=== PATIENT | female | born 1960 | race Caucasian/White ===

== ENCOUNTER 2017-03-19 17:20 | Emergency (ER) | payer OTHER ==
[2017-03-19 17:47] VITALS: BP 161/82; PULSE 78; TEMP 98.2; BMI 25.0
--- NOTE | 2017-03-19 17:48 | PDOC ---
History of Present Illness - General History Source: Patient Exam Limitations: No Limitations - History of Present Illness Initial Comments: The patient is a 57 yo F with a PMHx of HTN and depression who presents with 10 days of neck and back pain. Patient denies trauma to the area. Patient called her physician and was prescribed Naproxen with no relief. Patient reports a prior Hx of 2 dislocated discs. PCP: Dr. Jackson Patients current medications: Losartan HCTZ, on pyrazole, metoprolol, mirtazapine, buspirone <Danya Garzon - Last Filed: 03/19/17 18:15> <Anders Torres - Last Filed: 03/19/17 18:25> - General Chief Complaint: Pain Stated Complaint: RIGHT SIDED NECK AND UPPER BACK PAIN 10 DAYS Time Seen by Provider: 03/19/17 17:47 Past History <Danya Garzon - Last Filed: 03/19/17 18:15> - Past Medical History GI Disorders: Yes (REFLUX) HTN: Yes Hypercholesterolemia: Yes Psychiatric Problems: Yes (DEPRESSION ANXIETY) Other medical history: ARTHRITIS - Surgical History Orthopedic Surgery: Yes (left knee) - Psycho/Social/Smoking Cessation Hx Anxiety: No Suicidal Ideation: No Smoking Status: No Smoking History: Never smoked Have you smoked in the past 12 months: No Number of Cigarettes Smoked Daily: 0 Information on smoking cessation initiated: No Hx Alcohol Use: No Drug/Substance Use Hx: No Substance Use Type: None Hx Substance Use Treatment: No <Anders Torres - Last Filed: 03/19/17 18:25> - Past Medical History Allergies/Adverse Reactions: Allergies Allergy/AdvReac Type Severity Reaction Status Date / Time No Known Allergies Allergy Verified 03/19/17 17:22 Home Medications: Ambulatory Orders Metoprolol Succinate [Toprol XL -] 100 mg PO DAILY 04/18/14 Losartan 50Mg/Hctz 12.5MG [Hyzaar -] 1 tab PO DAILY 08/28/16 Buspirone HCl 15 mg PO BID 03/19/17 Cyclobenzaprine HCl [Flexeril 10 mg] 10 mg PO TID PRN #30 tablet 03/19/17 Methylprednisolone [Medrol Dose Yobani] 4 mg PO ASDIR #21 tablet 03/19/17 Mirtazapine 30 mg PO HS 03/19/17 Naproxen [Naprosyn -] 500 mg PO BID 03/19/17 Omeprazole 40 mg PO DAILY 03/19/17 Review of Systems - Review of Systems Able to Perform ROS?: Yes Comments:: GENERAL/CONSTITUTIONAL: No fever or chills. No weakness. HEAD, EYES, EARS, NOSE AND THROAT: No change in vision. No ear pain or discharge. No sore throat. CARDIOVASCULAR: No chest pain or shortness of breath. RESPIRATORY: No cough, wheezing, or hemoptysis. GASTROINTESTINAL: No nausea, vomiting, diarrhea or constipation. GENITOURINARY: No dysuria, frequency, or change in urination. MUSCULOSKELETAL: + neck and back pain No joint or muscle swelling or pain. SKIN: No rash NEUROLOGIC: No headache, vertigo, loss of consciousness, or change in strength/ sensation. ENDOCRINE: No increased thirst. No abnormal weight change. HEMATOLOGIC/LYMPHATIC: No anemia, easy bleeding, or history of blood clots. ALLERGIC/IMMUNOLOGIC: No hives or skin allergy. <Danya Garzon - Last Filed: 03/19/17 18:15> *Physical Exam - Vital Signs Last Vital Signs Temp Pulse Resp BP Pulse Ox 98.2 F 78 16 161/82 100 03/19/17 17:21 03/19/17 17:21 03/19/17 17:21 03/19/17 17:21 03/19/17 17:21 - Physical Exam Comments: GENERAL: Awake, alert, and fully oriented, in no acute distress HEAD: No signs of trauma EYES: PERRLA, EOMI, sclera anicteric, conjunctiva clear ENT: Auricles normal inspection, hearing grossly normal, nares patent, oropharynx clear without exudates. Moist mucosa NECK: Normal ROM, supple, no lymphadenopathy, JVD, or masses LUNGS: Breath sounds equal, clear to auscultation bilaterally. No wheezes, and no crackles BACK: spasm to paraspinal muscles on R side. HEART: Regular rate and rhythm, normal S1 and S2, no murmurs, rubs or gallops ABDOMEN: Soft, nontender, normoactive bowel sounds. No guarding, no rebound. No masses EXTREMITIES: Normal range of motion, no edema. No clubbing or cyanosis. No cords, erythema, or tenderness NEUROLOGICAL: Cranial nerves II through XII grossly intact. Normal speech, normal gait SKIN: Warm, Dry, normal turgor, no rashes or lesions noted. <Danya Garzon - Last Filed: 03/19/17 18:15> - Vital Signs Last Vital Signs Temp Pulse Resp BP Pulse Ox 98.2 F 78 16 161/82 100 03/19/17 17:21 03/19/17 17:21 03/19/17 17:21 03/19/17 17:21 03/19/17 17:21 <Anders Torres - Last Filed: 03/19/17 18:25> Medical Decision Making - Medical Decision Making Will refer to orthopedic doctor. Will prescribe medication for spasm in R shoulder. Will prescribe prednisone for inflammation around spinal discs. <Danya Garzon - Last Filed: 03/19/17 18:15> *DC/Admit/Observation/Transfer - Attestations Scribe Attestion: Documentation prepared by Danya Justocoby, acting as medical assisting instructor for Anders Torres MD/DO. <Danya Garzon - Last Filed: 03/19/17 18:15> - Discharge Dispostion Admit: No - Attestations Physician Attestion: 03/19/17 17:48 I, Dr. Anders Torres, attest that this document has been prepared under my direction and personally reviewed by me in its entirety. I further attest, that it accurately reflects all work, treatment, procedures and medical decision -making performed by me. <Anders Torres - Last Filed: 03/19/17 18:25> - Discharge Dispostion Disposition: HOME Condition at time of disposition: Good - Prescriptions Prescriptions: Cyclobenzaprine HCl [Flexeril 10 mg] 10 mg PO TID PRN #30 tablet PRN Reason: spasm Methylprednisolone [Medrol Dose Yobani] 4 mg PO ASDIR #21 tablet - Referrals Referrals: Shukri Royal MD [Staff Physician] - Braden Olmos MD [Staff Physician] - - Patient Instructions Printed Discharge Instructions: DI for Degenerative Disc Disease Additional Instructions: Take the naprosyn twice a day with food. Start the medrol dose pack tomorrow. Return to us if problems Follow up with Dr. Royal Hope you feel better soon.
[2017-03-19] MEDS ORDERED: CYCLOBENZAPRINE HCL 10 MG TABLET (FP) PO ONE (18:11)
[2017-03-19] MEDS ORDERED: predniSONE 20 MG TABLET (UD) PO ONE (18:12)
[2017-03-19] MEDS ORDERED: predniSONE 20 MG TABLET (UD) ONE (18:29)
[2017-03-19] MEDS ORDERED: CYCLOBENZAPRINE HCL 10 MG TABLET (FP) ONE (18:29)
== END 2017-03-19 18:34 | disposition home or self-care (01) ==
LOC: FER 17:20
DX: M54.2 Cervicalgia (principal); M54.9 Dorsalgia, unspecified; F41.8 Other specified anxiety disorders; I10 Essential (primary) hypertension; K21.9 Gastro-esophageal reflux disease without esophagitis; E78.00 Pure hypercholesterolemia, unspecified
CPT/HCPCS: 99282-25

== ENCOUNTER 2018-05-26 16:58 | Emergency (ER) | payer OTHER ==
[2018-05-26 17:27] VITALS: BP 170/100; PULSE 65; TEMP 98.5; BMI 25.0
[2018-05-26] MEDS ORDERED: KETOROLAC TROMETHAMINE 30 MG/1 ML VIAL IM ONE (19:12)
[2018-05-26] MEDS ORDERED: diazePAM 2 MG TABLET PO ONE (19:12)
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
[2018-05-26] MEDS ORDERED: diazePAM 2 MG TABLET ONE (19:16)
[2018-05-26] MEDS ORDERED: KETOROLAC TROMETHAMINE 30 MG/1 ML VIAL ONE (19:16)
== END 2018-05-26 20:16 | disposition home or self-care (01) ==
LOC: FER 16:58
PROC: 3E0233Z Introduction of Anti-inflammatory into Muscle, Percutaneous Approach (ICD-10-PCS; principal; 2018-05-26)
DX: M54.41 Lumbago with sciatica, right side (principal); K21.9 Gastro-esophageal reflux disease without esophagitis; F41.8 Other specified anxiety disorders; I10 Essential (primary) hypertension; E78.00 Pure hypercholesterolemia, unspecified
CPT/HCPCS: 72100-TC-FY; 99282-25

== ENCOUNTER 2018-12-29 01:45 | Inpatient (IN) | payer OTHER ==
[2018-12-29 02:41] VITALS: BMI 25.0
--- NOTE | 2018-12-29 03:21 | PDOC ---
History of Present Illness <Chrissie Brewer - Last Filed: 12/29/18 06:02> - General History Source: Patient Exam Limitations: No Limitations - History of Present Illness Initial Comments: 12/29/18 05:21 58 yo F with a hx of chronic back pain, anemia, and HTN presents to the emergency department with lower back pain exacerbation with concurrent weakness , difficulty ambulating, and lightheadedness. Per the patient, she states that she began having low back pain 6-7 months ago. MRI read a disc bulge posteriorly at L4-L5. Per the patient, she denies previous spinal surgery. Denies fever, chills, SOB, chest pain, dysuria, hematuria, diarrhea, hematochezia, melena, and leg pain/swelling. No abdominal pain. Shx: None Allergies: NKDA Social: Denies tobacco and alcohol. <Lex Nina - Last Filed: 01/08/19 23:16> - General Chief Complaint: Pain Stated Complaint: HIP PAIN Time Seen by Provider: 12/29/18 02:19 Past History <Chrissie Brewer - Last Filed: 12/29/18 06:02> - Past Medical History COPD: No CHF: No GI Disorders: Yes (REFLUX) HTN: Yes Hypercholesterolemia: Yes Psychiatric Problems: Yes (DEPRESSION ANXIETY) - Surgical History Orthopedic Surgery: Yes (left knee) - Suicide/Smoking/Psychosocial Hx Smoking Status: No Smoking History: Never smoked Have you smoked in the past 12 months: No Number of Cigarettes Smoked Daily: 0 Information on smoking cessation initiated: No Hx Alcohol Use: No Drug/Substance Use Hx: No Substance Use Type: None Hx Substance Use Treatment: No <Lex Nina - Last Filed: 01/08/19 23:16> - Past Medical History Allergies/Adverse Reactions: Allergies Allergy/AdvReac Type Severity Reaction Status Date / Time No Known Allergies Allergy Verified 12/29/18 02:26 Home Medications: Ambulatory Orders Metoprolol Succinate [Toprol XL -] 100 mg PO DAILY 04/18/14 Losartan 50Mg/Hctz 12.5MG [Hyzaar -] 1 tab PO DAILY 08/28/16 Baclofen 10 mg PO BID 12/29/18 Cyclobenzaprine HCl 10 mg PO DAILY 12/29/18 Dexamethasone 20 mg PO Q7D 12/29/18 Multivitamin [Multiple Vitamins] 1 each PO DAILY 12/29/18 Acetaminophen [Tylenol .Regular Strength -] 650 mg PO Q6H PRN tablet 12/31/18 Dexamethasone [Decadron -] 20 mg PO Th@1000 tablet 12/31/18 Docusate Sodium [Colace -] 100 mg PO BID capsule 12/31/18 oxyCODONE SR [Oxycontin] 10 mg PO DAILY tab.er.12h MDD 10 12/31/18 Polyethylene Glycol 3350 [Miralax 119 gm Btl -] 17 gm PO DAILY bottle 01/02/19 Sennosides/Docusate Sodium [Pericolace -] 2 tablet PO HS PRN tablet 01/02/19 oxyCODONE HCL [Roxicodone -] 5 mg PO Q6H PRN tablet MDD 20 01/02/19 Review of Systems - Review of Systems Able to Perform ROS?: Yes Is the patient limited Thai proficient: No Constitutional: Yes: Weakness. No: Chills, Diaphoresis, Fever HEENTM: No: Blurred Vision, Recent change in vision, Ear Pain, Nose Pain, Throat Pain Respiratory: No: Cough, Shortness of Breath, Hemoptysis Cardiac (ROS): Yes: Lightheadedness. No: Chest Pain, Palpitations, Syncope, Chest Tightness ABD/GI: No: Constipated, Diarrhea, Nausea, Rectal Bleeding, Vomiting, Tarry Stools : No: Burning, Dysuria, Hematuria, Incontinence Musculoskeletal: Yes: Back Pain. No: Joint Pain, Neck Pain Integumentary: No: Bruising, Erythema, Sweating Neurological: No: Headache, Numbness, Tingling, Tremors Psychiatric: No: Change in Appetite Endocrine: No: Unexplained Weight Gain <Lex Nina - Last Filed: 01/08/19 23:16> *Physical Exam - Vital Signs Last Vital Signs Temp Pulse Resp BP Pulse Ox 98.3 F 110 H 20 180/97 H 97 12/29/18 01:45 12/29/18 01:45 12/29/18 01:45 12/29/18 01:45 12/29/18 01:45 <Chrissie Brewer - Last Filed: 12/29/18 06:02> - Vital Signs Last Vital Signs Temp Pulse Resp BP Pulse Ox 98.3 F 110 H 20 180/97 H 97 12/29/18 01:45 12/29/18 01:45 12/29/18 01:45 12/29/18 01:45 12/29/18 01:45 - Physical Exam General Appearance: Yes: Nourished, Appropriately Dressed, Obese. No: Apparent Distress HEENT: positive: EOMI, CEDRIC, Normal Voice, Symmetrical, Pharynx Normal, Hearing Grossly Normal. negative: Pale Conjunctivae, Scleral Icterus (R), Scleral Icterus (L), Muffled/Hoarse voice, Pharyngeal Erythema, Tonsillar Exudate, Tonsillar Erythema, Excessive drooling Neck: positive: Trachea midline, Supple. negative: Tender, Lymphadenopathy (R) , Lymphadenopathy (L), Tender lateral, Tender midline Respiratory/Chest: positive: Lungs Clear, Normal Breath Sounds. negative: Chest Tender, Respiratory Distress, Accessory Muscle Use, Crackles, Rales, Rhonchi, Stridor, Wheezing Cardiovascular: positive: Regular Rhythm, S1, S2, Tachycardia. negative: Systolic Murmur Gastrointestinal/Abdominal: positive: Normal Bowel Sounds, Flat, Soft. negative : Tender, Distended, Guarding, Rebound Rectal Exam: positive: heme negative stool, normal rectal tone, hemorrhoids. negative: melena, decreased tone Lymphatic: negative: Adenopathy Musculoskeletal: positive: Normal Inspection. negative: CVA Tenderness, Vertebral Tenderness Extremity: positive: Normal Capillary Refill, Normal Inspection, Normal Range of Motion, Other (positive SLR test on the right side). negative: Tender Integumentary: positive: Dry, Warm, Pale. negative: Swelling, Ecchymosis Neurologic: positive: brickmason II-XII NML intact, Fully Oriented, Alert, Normal Mood/ Affect, Normal Response, Motor Strength 5/5. negative: EOM Palsy, Facial Droop , Numbness <Lex Nina - Last Filed: 01/08/19 23:16> ED Treatment Course - LABORATORY CBC & Chemistry Diagram: 12/29/18 03:35 12/29/18 03:35 - ADDITIONAL ORDERS Additional order review: Laboratory Results 12/29/18 12/29/18 12/29/18 05:15 03:44 03:35 PT with INR INR Sodium Potassium Chloride Carbon Dioxide Anion Gap BUN Creatinine Creat Clearance w eGFR Random Glucose Calcium Total Bilirubin AST ALT Alkaline Phosphatase Creatine Kinase Troponin I Total Protein Albumin Urine Color Yellow Urine Appearance Clear Urine pH 6.5 Ur Specific [place] 1.005 L Urine Protein Negative Urine Glucose (UA) Negative Urine Ketones Negative Urine Blood Negative Urine Nitrite Negative Urine Bilirubin Negative Urine Urobilinogen 0.2 Ur Leukocyte Esterase Negative Stool Occult Blood Negative Blood Type O POSITIVE Antibody Screen Negative Crossmatch See Detail 12/29/18 12/29/18 03:35 03:35 PT with INR 14.90 H INR 1.26 H Sodium 136 Potassium 3.7 Chloride 99 Carbon Dioxide 31 Anion Gap 6 L BUN 23 H Creatinine 0.8 Creat Clearance w eGFR 73.93 Random Glucose 82 Calcium 9.1 Total Bilirubin 0.5 AST 37 ALT 50 Alkaline Phosphatase 98 Creatine Kinase 12 L Troponin I < 0.02 Total Protein 9.3 H Albumin 2.4 L Urine Color Urine Appearance Urine pH Ur Specific [place] Urine Protein Urine Glucose (UA) Urine Ketones Urine Blood Urine Nitrite Urine Bilirubin Urine Urobilinogen Ur Leukocyte Esterase Stool Occult Blood Blood Type Antibody Screen Crossmatch 12/29/18 03:35 RBC 2.30 L MCV 97.5 H MCHC 33.8 RDW 18.4 H MPV 8.8 Neutrophils % 59.5 Lymphocytes % 30.7 Monocytes % 8.7 Eosinophils % 0.9 Basophils % 0.2 - Medications Given in the ED: ED Medications Discontinued Medications Generic Name Dose Route Start Last Admin Trade Name Juliusq PRN Reason Stop Dose Admin HCTZ/Losartan Potassium 2 tab 12/29/18 03:23 12/29/18 05:08 Hyzaar - PO 12/29/18 03:24 2 tab ONCE ONE Administration Methocarbamol 1,000 mg 12/29/18 05:10 12/29/18 05:17 Robaxin - PO 12/29/18 05:11 1,000 mg ONCE ONE Administration Metoprolol Tartrate 50 mg 12/29/18 03:24 12/29/18 03:43 Lopressor - PO 12/29/18 03:25 50 mg ONCE ONE Administration Morphine Sulfate 2 mg 12/29/18 03:22 12/29/18 03:43 Morphine Injection - IVPUSH 12/29/18 03:23 2 mg ONCE ONE Administration <Chrissie Brewer - Last Filed: 12/29/18 06:02> - LABORATORY CBC & Chemistry Diagram: 01/01/19 06:30 01/01/19 06:30 <Lex Nina - Last Filed: 01/08/19 23:16> Medical Decision Making - Medical Decision Making 58 yo F with a hx of chronic back pain, anemia, and HTN presents to the emergency department with lower back pain exacerbation with concurrent weakness , difficulty ambulating, and lightheadedness. Initial vitals; Initial Vital Signs Temp Pulse Resp BP Pulse Ox 98.3 F 110 H 20 180/97 H 97 12/29/18 01:45 12/29/18 01:45 12/29/18 01:45 12/29/18 01:45 12/29/18 01:45 Work up: ddx: pain presents with acute on chronic back pain with worsening weakness, dyspnea on exertion the patient on exam was pale per my own clinical judgement and the patient's family Patient denies traumas and new quality in pain, just increased severity Will r/o ACS causes for weakness, suspect patient is anemic. Laboratory Tests 12/29/18 12/29/18 12/29/18 03:35 03:35 03:35 WBC 8.2 RBC 2.30 L Hgb 7.6 L Hct 22.4 L MCV 97.5 H MCH 32.9 MCHC 33.8 RDW 18.4 H Plt Count 155 MPV 8.8 Absolute Neuts (auto) 4.9 Neutrophils % 59.5 Lymphocytes % 30.7 Monocytes % 8.7 Eosinophils % 0.9 Basophils % 0.2 Nucleated RBC % 0 PT with INR 14.90 H INR 1.26 H Sodium 136 Potassium 3.7 Chloride 99 Carbon Dioxide 31 Anion Gap 6 L BUN 23 H Creatinine 0.8 Creat Clearance w eGFR 73.93 Random Glucose 82 Calcium 9.1 Total Bilirubin 0.5 AST 37 ALT 50 Alkaline Phosphatase 98 Creatine Kinase 12 L Troponin I < 0.02 Total Protein 9.3 H Albumin 2.4 L Urine Color Urine Appearance Urine pH Ur Specific [place] Urine Protein Urine Glucose (UA) Urine Ketones Urine Blood Urine Nitrite Urine Bilirubin Urine Urobilinogen Ur Leukocyte Esterase Blood Type Antibody Screen Crossmatch 12/29/18 12/29/18 03:35 03:44 WBC RBC Hgb Hct MCV MCH MCHC RDW Plt Count MPV Absolute Neuts (auto) Neutrophils % Lymphocytes % Monocytes % Eosinophils % Basophils % Nucleated RBC % PT with INR INR Sodium Potassium Chloride Carbon Dioxide Anion Gap BUN Creatinine Creat Clearance w eGFR Random Glucose Calcium Total Bilirubin AST ALT Alkaline Phosphatase Creatine Kinase Troponin I Total Protein Albumin Urine Color Yellow Urine Appearance Clear Urine pH 6.5 Ur Specific [place] 1.005 L Urine Protein Negative Urine Glucose (UA) Negative Urine Ketones Negative Urine Blood Negative Urine Nitrite Negative Urine Bilirubin Negative Urine Urobilinogen 0.2 Ur Leukocyte Esterase Negative Blood Type O POSITIVE Antibody Screen Negative Crossmatch See Detail Patient found to have a hemoglobin of 7.6. Due to the patient having worsening weakness and dyspnea on exertion in the setting of anemia, she has sufficiently symptomatic anemia. Dispo: Admit <Lex Nina - Last Filed: 01/08/19 23:16> *DC/Admit/Observation/Transfer - Discharge Dispostion Decision to Admit order: Yes <Chrissie Brewer - Last Filed: 12/29/18 06:02> <Lex Nina - Last Filed: 01/08/19 23:16> Diagnosis at time of Disposition: Low back pain, Anemia - Discharge Dispostion Disposition: TRANSFER ACUTE CARE/OTHER HOSP Condition at time of disposition: Stable
[2018-12-29] MEDS ORDERED: morphine CARPU-JECT 2 MG/1 ML DISP.SYRIN IVPUSH ONE (03:22)
[2018-12-29] MEDS ORDERED: LOSARTAN 50MG/HCTZ 12.5MG 1 TAB (FP) PO ONE (03:23)
[2018-12-29] MEDS ORDERED: METOPROLOL TARTRATE 50 MG TABLET (FP) PO ONE (03:24)
[2018-12-29] MEDS ORDERED: morphine SULFATE 4 MG/ML VIAL ONE ×2 (03:29→14:27)
[2018-12-29] MEDS ORDERED: METOPROLOL TARTRATE 50 MG TABLET (FP) ONE (03:30)
[2018-12-29 04:02] LABS: PH,URINE 6.5 (5.0-8.0); URINE APPEARANCE CLEAR; URINE BILIRUBIN NEGATIVE (NEGATIVE); URINE COLOR YELLOW; URINE GLUCOSE (UA) NEGATIVE (NEGATIVE); URINE KETONE NEGATIVE (NEGATIVE); URINE LEUK ESTERASE NEGATIVE (NEGATIVE); URINE NITRITE NEGATIVE (NEGATIVE); URINE PROTEIN NEGATIVE (NEGATIVE); URINE UROBILINOGEN 0.2 mg/dL (0.2-1.0)
[2018-12-29 04:03] LABS: BASO % 0.2 % (0-2.0); EOS % 0.9 % (0-4.5); HEMATOCRIT 22.4 % (32.4-45.2); HEMOGLOBIN 7.6 GM/dL (10.7-15.3); LYMPH % 30.7 % (8-40); MCH 32.9 pg (25.7-33.7); MCHC 33.8 g/dl (32.0-36.0); MEAN CELL VOLUME 97.5 fl (80-96); MEAN PLT VOLUME 8.8 fl (7.5-11.1); MONO % 8.7 % (3.8-10.2); NEUT % 59.5 % (42.8-82.8); PLATELET COUNT 155 K/MM3 (134-434); RDW 18.4 % (11.6-15.6); WHITE BLOOD COUNT 8.2 K/mm3 (4.0-10.0)
[2018-12-29 04:16] LABS: INR 1.26 (0.83-1.09); PROTHROMBIN TIME (PATIENT) 14.9 SEC (9.7-13.0)
[2018-12-29 04:29] LABS: ALBUMIN 2.4 g/dl (3.4-5.0); ALK PHOS 98 U/L (45-117); ANION GAP 6 MMOL/L (8-16); BILIRUBIN,TOTAL 0.5 mg/dL (0.2-1); BLOOD UREA NITROGEN 23 mg/dL (7-18); CALCIUM 9.1 mg/dL (8.5-10.1); CHLORIDE 99 mmol/L (98-107); CO2 31 mmol/L (21-32); CREATININE 0.8 mg/dL (0.55-1.3); GLUCOSE,RANDOM 82 mg/dL (74-106); POTASSIUM 3.7 mmol/L (3.5-5.1); SGOT/AST 37 U/L (15-37); SGPT/ALT 50 U/L (13-61); SODIUM 136 mmol/L (136-145); TOT PROT 9.3 g/dl (6.4-8.2)
--- NOTE | 2018-12-29 05:02 | PDOC ---
Attending Attestation - Resident Resident Name: Lex Nina - ED Attending Attestation I have performed the following: I have examined & evaluated the patient, The case was reviewed & discussed with the resident, I agree w/resident's findings & plan - HPI HPI: 12/29/18 20:14 Pt comes with low back pain and generalized weakness. She has been recently worked up at [facility]. Her sister tells me that a she had a spine MRI in the last few months, and her PMD would have the results. Pt has known bulging disks, but now she fins that he has worsening right paraspinal pain at the low back area. Pt also has anemia and she appears jaundiced. Pt is otherwise A+Ox3 and she has no other distress. - Physicial Exam PE: 12/29/18 20:16 Agree with resident exam. Straight leg raise is positive at 75degrees of elevation bilaterally. Pt has no stool in the vault and no blood in the rectal vault. She is ghuaiac negative. No abd pain and no other positive findings. - Medical Decision Making 12/29/18 20:18 Pt will be admitted for her anemia and she will be further evaluated for her back pain. Likely muscle spasms vs compression fractures, along with peripheral neuropathy.. 12/29/18 20:21 Patient Name: AKI HAYDEN THIS IS A PRELIMINARY REPORT FROM [facility] DATE OF SERVICE: 2018-12-29 16:07:16 IMAGES: [id number] EXAM: CT Thoracic Spine w/o Contrast and CT Lumbar Spine w/o Contrast HISTORY: Back pain COMPARISON: None. FINDINGS: THORACIC SPINE: Thoracic alignment is within normal limits. There is mild compression of the superior endplate of the T12 vertebral body. There is mild retropulsion of the superior endplate. Precise chronicity is undetermined. There is degenerative thoracic endplate spondylosis. There is diffuse bony demineralization. There is a question of scattered lucencies throughout the cervical spine. Is there history of myeloma? Incidentally noted are small bilateral pleural effusions. LUMBAR SPINE: Lumbar alignment is within normal limits. There is mild compression of the superior endplate of the L2 vertebral body with minimal retropulsion. Precise chronicity is undetermined. Mild compression of the left side of the superior endplate of L3 versus Schmorl' s node. There is mild posterior wedge compression of the L5 vertebral body of undetermined chronicity. There is diffuse bony demineralization. Extensive bony lucency is noted in the visualized sacrum and iliac crests. Question scattered lucencies throughout the axial skeleton. Myeloma? One or more of the following dose reduction techniques were used: automated exposure control, adjustment of the mA and/or kV according to patient size, use of iterative reconstructive technique 12/29/18 20:25
[2018-12-29] MEDS ORDERED: METHOCARBAMOL 500 MG TABLET PO ONE (05:10)
[2018-12-29] MEDS ORDERED: METHOCARBAMOL 500 MG TABLET ONE (05:14)
--- NOTE | 2018-12-29 07:41 | PN ---
Teaching Attending Note Name of Resident: Shilpi Garcia ATTENDING PHYSICIAN STATEMENT I saw and evaluated the patient. I reviewed the resident's note and discussed the case with the resident. I agree with the resident's findings and plan as documented. SUBJECTIVE: worsening back pain OBJECTIVE: Vital Signs Temperature 98.5 F 12/29/18 07:03 Pulse Rate 78 12/29/18 07:03 Respiratory Rate 20 12/29/18 01:45 Blood Pressure 172/89 H 12/29/18 07:03 O2 Sat by Pulse Oximetry (%) 99 12/29/18 07:54 Elderly F not in distress c/o back pain HEENT: mm moist, anemia + NECK: No JVd No Bruit CHEST: CTA B/L CVS; S1S2 R ABD: Obese, non tender Bs + EXT: No manuel afeet, no calf tenderness INSULATION APPLICATOR: AOX3 2-12 cranial N normal UE: Power sensations are normal LE: No gross weakness , limited exam due to pain, no sensory oss, B/L ++ reflex in Knee and ankles, Planter flexors, no sensory loss, no loss of sensation in saddle area CBC,CMP WBC 7.3 K/mm3 (4.0-10.0) 12/29/18 10:12 RBC 2.44 M/mm3 (3.60-5.2) L 12/29/18 10:12 Hgb 8.1 GM/dL (10.7-15.3) L 12/29/18 10:12 Hct 23.5 % (32.4-45.2) L 12/29/18 10:12 MCV 96.6 fl (80-96) H 12/29/18 10:12 MCH 33.3 pg (25.7-33.7) 12/29/18 10:12 MCHC 34.5 g/dl (32.0-36.0) 12/29/18 10:12 RDW 18.2 % (11.6-15.6) H 12/29/18 10:12 Plt Count 168 K/MM3 (134-434) 12/29/18 10:12 MPV 8.4 fl (7.5-11.1) 12/29/18 10:12 Absolute Neuts (auto) 4.9 K/mm3 (1.5-8.0) 12/29/18 03:35 Neutrophils % 59.5 % (42.8-82.8) 12/29/18 03:35 Lymphocytes % 30.7 % (8-40) 12/29/18 03:35 Monocytes % 8.7 % (3.8-10.2) 12/29/18 03:35 Eosinophils % 0.9 % (0-4.5) 12/29/18 03:35 Basophils % 0.2 % (0-2.0) 12/29/18 03:35 Nucleated RBC % 0 % (0-0) 12/29/18 03:35 Sodium 136 mmol/L (136-145) 12/29/18 03:35 Potassium 3.7 mmol/L (3.5-5.1) 12/29/18 03:35 Chloride 99 mmol/L (98-107) 12/29/18 03:35 Carbon Dioxide 31 mmol/L (21-32) 12/29/18 03:35 Anion Gap 6 MMOL/L (8-16) L 12/29/18 03:35 BUN 23 mg/dL (7-18) H 12/29/18 03:35 Creatinine 0.8 mg/dL (0.55-1.3) 12/29/18 03:35 Creat Clearance w eGFR 73.93 (>60) 12/29/18 03:35 Random Glucose 82 mg/dL (74-106) 12/29/18 03:35 Calcium 9.1 mg/dL (8.5-10.1) 12/29/18 03:35 Ferritin 98.6 ng/ml (8-388) 12/29/18 06:33 Total Bilirubin 0.5 mg/dL (0.2-1) 12/29/18 03:35 AST 37 U/L (15-37) 12/29/18 03:35 ALT 50 U/L (13-61) 12/29/18 03:35 Alkaline Phosphatase 98 U/L (45-117) 12/29/18 03:35 Creatine Kinase 12 U/L (26-192) L 12/29/18 03:35 Troponin I < 0.02 ng/ml (0.00-0.05) 12/29/18 03:35 Total Protein 9.3 g/dl (6.4-8.2) H 12/29/18 03:35 Albumin 2.4 g/dl (3.4-5.0) L 12/29/18 03:35 Active Medications Acetaminophen (Tylenol -) 650 mg PO Q6H PRN PRN Reason: FEVER Baclofen (Lioresal -) 10 mg PO BID [facility] Last Admin: 12/29/18 10:23 Dose: 10 mg Cyclobenzaprine HCl (Flexeril -) 10 mg PO DAILY [facility] Last Admin: 12/29/18 10:23 Dose: 10 mg Dexamethasone (Decadron -) 20 mg PO Th@1000 [facility] Docusate Sodium (Colace -) 100 mg PO BID PRN PRN Reason: CONSTIPATION HCTZ/Losartan Potassium (Hyzaar -) 1 tab PO DAILY [facility] Last Admin: 12/29/18 10:23 Dose: 1 tab Heparin Sodium (Porcine) (Heparin -) 5,000 unit SQ TID [facility] Last Admin: 12/29/18 13:20 Dose: 5,000 unit Metoprolol Succinate (Toprol Xl -) 100 mg PO DAILY [facility] Last Admin: 12/29/18 10:23 Dose: 100 mg Miscellaneous (Lidoderm Patch Removal) 1 each MC ONCE@2200 ONE Stop: 12/29/18 22:01 Multivitamins/Minerals/Vitamin C (Tab-A-Vit -) 1 tab PO DAILY [facility] Last Admin: 12/29/18 10:23 Dose: 1 tab Oxycodone HCl (Roxicodone -) 5 mg PO Q3H PRN PRN Reason: PAIN LEVEL 7 - 10 ASSESSMENT AND PLAN:58 yrs old F known case of Multiple myeloma recently diagnosed after BM aspiration as a part of chronic anemia schedule for chemotherapy at Dr Laureano reed at [phone], [facility], chronic back pain underwent [facility] MRI spine L4-5 disc no cord compression , multiple myeloma lesions, no compression fracture , present with worsening pain over past 2 wks unable to ambulate due to pain. no loss of sensation in saddle are or bowel bladder incontinence admitted for worsening pain . Problem List - Problems (1) Back pain Assessment/Plan: chronic in the setting of multiple myeloma recent MRI 12/03/2018 (patient has report) shows no fracture and cord compression, no myeloma changes will F/U CT LS spine and pain control if remains symptomatic will consider MRI and spine consult. Cont muscles relaxant add short active opiates and bowel regimen Code(s): M54.9 - DORSALGIA, UNSPECIFIED (2) Multiple myeloma Assessment/Plan: worked up at [facility] has F/U with Oncologist at [facility] on Sunday on Dexamethaasone resume home meds Code(s): C90.00 - MULTIPLE MYELOMA NOT HAVING ACHIEVED REMISSION (3) Anemia Assessment/Plan: due to multiple myeloma h/H are stable Code(s): D64.9 - ANEMIA, UNSPECIFIED (4) HTN (hypertension) Assessment/Plan: resume home meds Code(s): I10 - ESSENTIAL (PRIMARY) HYPERTENSION
[2018-12-29] MEDS ORDERED: LIDOCAINE 5% TOPICAL PATCH TP ONE (09:24)
[2018-12-29] MEDS ORDERED: LIDOCAINE 5% TOPICAL PATCH ONE (09:54)
[2018-12-29] MEDS ORDERED: CYCLOBENZAPRINE HCL 10 MG TABLET (FP) ONE (09:54)
[2018-12-29] MEDS ORDERED: BACLOFEN 10 MG TABLET (FP) ONE ×2 (09:54→22:49)
[2018-12-29] MEDS ORDERED: HEPARIN NA (PORCINE) 5,000 UNITS/ML 1ML VIAL ONE ×2 (09:54→22:50)
[2018-12-29 10:23] LABS: HEMATOCRIT 23.5 % (32.4-45.2); HEMOGLOBIN 8.1 GM/dL (10.7-15.3); MCH 33.3 pg (25.7-33.7); MCHC 34.5 g/dl (32.0-36.0); MEAN CELL VOLUME 96.6 fl (80-96); MEAN PLT VOLUME 8.4 fl (7.5-11.1); PLATELET COUNT 168 K/MM3 (134-434); RBC 2.44 M/mm3 (3.60-5.2); RDW 18.2 % (11.6-15.6); WHITE BLOOD COUNT 7.3 K/mm3 (4.0-10.0)
[2018-12-29] MEDS: MULTIVITAMINS (DAILY MVI) TABLET (FP) PO SCH (10:23)
[2018-12-29] MEDS: BACLOFEN 10 MG TABLET (FP) PO SCH ×2 (10:23→22:50)
[2018-12-29] MEDS: LOSARTAN 50MG/HCTZ 12.5MG 1 TAB (FP) PO SCH (10:23)
[2018-12-29] MEDS: CYCLOBENZAPRINE HCL 10 MG TABLET (FP) PO SCH (10:23)
--- NOTE | 2018-12-29 11:51 | HP ---
CHIEF COMPLAINT:low back pain PCP:Dr. Bigg Rae Heme-onc: Dr. Laureano Pickett HISTORY OF PRESENT ILLNESS: Patient is a 58 year old female with past medical history of chronic back pain, anemia, HTN, and multiple myeloma, presented to the ED due to worsening low back pain in the last 2 weeks. Patient reported back pain started about 6-7 months ago, and she has been taking Diclofenac, Flexeril and Baclofen. Patient was also recently diagnosed with multiple myeloma (12/2018), to which she has been receiving treatment, and follows up with Dr. Pickett in [place]. Two weeks ago, patient had an MRI done which revealed mild degenerative changes involving the cervical, thoracic and lumbosacral spine, lumbar disc bulges minimally indent the thecal sac from L3-L4, L5-S1 levels with no spinal canal or forminal compromise. Due to worsening back pain, patient has had difficulty walking. Patient denies fever, chills, SOB, chest pain, shortness of breath, abdominal pain, bowel or bladder incontinence, weakness, numbness or tingling. ER course was notable for: (1) (2) (3) Recent Travel:denies PAST MEDICAL HISTORY: chronic back pain anemia HTN multiple myeloma PAST SURGICAL HISTORY: Social History: Smoking:denies Alcohol:denies Drugs:denies Family History: Allergies No Known Allergies Allergy (Verified 12/29/18 02:26) HOME MEDICATIONS: Home Medications Medication Instructions Recorded Metoprolol Succinate [Toprol XL -] 100 mg PO DAILY 04/18/14 Losartan 50Mg/Hctz 12.5MG [Hyzaar 1 tab PO DAILY 08/28/16 -] Baclofen 10 mg PO BID 12/29/18 Cyclobenzaprine HCl 10 mg PO DAILY 12/29/18 Dexamethasone 20 mg PO ASDIR 12/29/18 Diclofenac Sodium [Diclofenac 75 mg PO DAILY 12/29/18 Sodium ER] Multivitamin [Multiple Vitamins] 1 each PO DAILY 12/29/18 REVIEW OF SYSTEMS CONSTITUTIONAL: Absent: fever, chills, diaphoresis, generalized weakness, malaise, loss of appetite, weight change HEENT: Absent: rhinorrhea, nasal congestion, throat pain, throat swelling, difficulty swallowing, mouth swelling, ear pain, eye pain, visual changes CARDIOVASCULAR: Absent: chest pain, syncope, palpitations, irregular heart rate, lightheadedness , peripheral edema RESPIRATORY: Absent: cough, shortness of breath, dyspnea with exertion, orthopnea, wheezing, stridor, hemoptysis GASTROINTESTINAL: Absent: abdominal pain, abdominal distension, nausea, vomiting, diarrhea, constipation, melena, hematochezia GENITOURINARY: Absent: dysuria, frequency, urgency, hesitancy, hematuria, flank pain, genital pain MUSCULOSKELETAL: back pain Absent: myalgia, arthralgia, joint swelling, neck pain SKIN: Absent: rash, itching, pallor HEMATOLOGIC/IMMUNOLOGIC: Absent: easy bleeding, easy bruising, lymphadenopathy, frequent infections ENDOCRINE: Absent: unexplained weight gain, unexplained weight loss, heat intolerance, cold intolerance NEUROLOGIC: Absent: headache, focal weakness or paresthesias, dizziness, unsteady gait, seizure, mental status changes, bladder or bowel incontinence PSYCHIATRIC: Absent: anxiety, depression, suicidal or homicidal ideation, hallucinations. PHYSICAL EXAMINATION Vital Signs - 24 hr 12/29/18 12/29/18 12/29/18 01:45 07:03 07:54 Temperature 98.3 F 98.5 F Pulse Rate 110 H Pulse Rate [ 78 Right Radial] Respiratory 20 Rate Blood Pressure 180/97 H Blood Pressure 172/89 H [Right Arm] O2 Sat by Pulse 97 97 99 Oximetry (%) GENERAL: Awake, alert, and fully oriented, in no acute distress. HEAD: Normal with no signs of trauma. EYES: PERRLA, EOMI, sclera anicteric, conjunctiva clear. EARS, NOSE, THROAT: oropharynx clear without exudates. Moist mucous membranes. NECK: Normal range of motion, supple without lymphadenopathy, JVD, or masses. LUNGS: Breath sounds equal, clear to auscultation bilaterally. HEART: Regular rate and rhythm, normal S1 and S2 without murmur, rub or gallop. ABDOMEN: Soft, nontender, not distended, normoactive bowel sounds. MUSCULOSKELETAL: Normal range of motion of bilateral UE. Limited AROM/PROM bilateral LE due to pain. UPPER EXTREMITIES: 2+ pulses, warm, well-perfused. No peripheral edema. LOWER EXTREMITIES: 2+ pulses, warm, well-perfused.No peripheral edema. NEUROLOGICAL: AAOx3, Cranial nerves II-XII intact. Normal speech. Motor strength 5/5, sensation intact on all extremities. DTRs +2. Gait not observed as patient screams in pain with minimal LE movement. PSYCHIATRIC: Cooperative. Good eye contact. Appropriate mood and affect. SKIN: Warm, dry, normal turgor, no rashes or lesions noted, normal capillary refill. Laboratory Results - last 24 hr 12/29/18 12/29/18 12/29/18 03:35 03:35 03:35 WBC 8.2 RBC 2.30 L Hgb 7.6 L Hct 22.4 L MCV 97.5 H MCH 32.9 MCHC 33.8 RDW 18.4 H Plt Count 155 MPV 8.8 Absolute Neuts (auto) 4.9 Neutrophils % 59.5 Lymphocytes % 30.7 Monocytes % 8.7 Eosinophils % 0.9 Basophils % 0.2 Nucleated RBC % 0 PT with INR 14.90 H INR 1.26 H Sodium 136 Potassium 3.7 Chloride 99 Carbon Dioxide 31 Anion Gap 6 L BUN 23 H Creatinine 0.8 Creat Clearance w eGFR 73.93 Random Glucose 82 Calcium 9.1 Ferritin Total Bilirubin 0.5 AST 37 ALT 50 Alkaline Phosphatase 98 Creatine Kinase 12 L Troponin I < 0.02 Total Protein 9.3 H Albumin 2.4 L Urine Color Urine Appearance Urine pH Ur Specific [place] Urine Protein Urine Glucose (UA) Urine Ketones Urine Blood Urine Nitrite Urine Bilirubin Urine Urobilinogen Ur Leukocyte Esterase Stool Occult Blood Blood Type Antibody Screen Crossmatch 12/29/18 12/29/18 12/29/18 03:35 03:44 05:15 WBC RBC Hgb Hct MCV MCH MCHC RDW Plt Count MPV Absolute Neuts (auto) Neutrophils % Lymphocytes % Monocytes % Eosinophils % Basophils % Nucleated RBC % PT with INR INR Sodium Potassium Chloride Carbon Dioxide Anion Gap BUN Creatinine Creat Clearance w eGFR Random Glucose Calcium Ferritin Total Bilirubin AST ALT Alkaline Phosphatase Creatine Kinase Troponin I Total Protein Albumin Urine Color Yellow Urine Appearance Clear Urine pH 6.5 Ur Specific [place] 1.005 L Urine Protein Negative Urine Glucose (UA) Negative Urine Ketones Negative Urine Blood Negative Urine Nitrite Negative Urine Bilirubin Negative Urine Urobilinogen 0.2 Ur Leukocyte Esterase Negative Stool Occult Blood Negative Blood Type O POSITIVE Antibody Screen Negative Crossmatch See Detail 12/29/18 12/29/18 12/29/18 06:33 06:33 10:12 WBC 7.3 RBC 2.44 L Hgb 8.1 L Hct 23.5 L MCV 96.6 H MCH 33.3 MCHC 34.5 RDW 18.2 H Plt Count 168 MPV 8.4 Absolute Neuts (auto) Neutrophils % Lymphocytes % Monocytes % Eosinophils % Basophils % Nucleated RBC % PT with INR INR Sodium Potassium Chloride Carbon Dioxide Anion Gap BUN Creatinine Creat Clearance w eGFR Random Glucose Calcium Ferritin 98.6 Total Bilirubin AST ALT Alkaline Phosphatase Creatine Kinase Troponin I Total Protein Albumin Urine Color Urine Appearance Urine pH Ur Specific [place] Urine Protein Urine Glucose (UA) Urine Ketones Urine Blood Urine Nitrite Urine Bilirubin Urine Urobilinogen Ur Leukocyte Esterase Stool Occult Blood Blood Type O POSITIVE Antibody Screen Crossmatch ASSESSMENT/PLAN: Patient is a 58 year old female with past medical history of chronic back pain, anemia, HTN, and multiple myeloma, presented to the ED due to worsening low back pain in the last 2 weeks. #Low back pain -Likely 2/2 multiple myeloma -MRI (12/03/1018): At C5-C6 level, disc bulge minimally effaces the anterior subarachnoid space but does not indent the cord. Mild bilateral facet joint and uncovertebral joint arthropathy changes to cause at least mild bilateral foraminal compromise. Similar changes in C6-C7 level. In the lower thoracic spine, bilateral ligamenta flava thickening. In the lumbar region, disc bulges to minimally indent the thecal sac from the L3-L4 and L5-S1 levels. No spinal canal or foraminal compromise. -Cervical, thoracic, lumbar spine CT ordered. -Pain control with Oxycodone 5mg and Tylenol 650mg -Bowel regimen -Continue home Baclofen and Flexeril -Physical therapy #Multiple myeloma -Receives weekly dose of steroids from heme-onc Dr. Pickett (follow up on Sunday) -will monitor CBC, BMP -Anemia likely 2/2 MM #Hypertension -Continue home Losartan 50/HCTZ 12.5 daily -Continue Metoprolol XL 100 mg daily #FEN -Not on any standing fluids -Electrolytes wnl, routine bmp monitoring -Sodium controlled diet #Prophylaxis -Heparin 5000units sq tid #Disposition -full code -med surg obs -for possible discharge tomorrow, physical therapy evaluation Visit type - Emergency Visit Emergency Visit: Yes ED Registration Date: 12/29/18 Care time: The patient presented to the Emergency Department on the above date and was hospitalized for further evaluation of their emergent condition. - New Patient This patient is new to me today: Yes Date on this admission: 12/29/18 - Critical Care Critical Care patient: No
[2018-12-29] MEDS ORDERED: DOCUSATE SODIUM 100 MG CAPSULE (FP) PO PRN (12:16)
[2018-12-29] MEDS: HEPARIN NA (PORCINE) 5,000 UNITS/ML 1ML VIAL SQ SCH ×2 (13:20→22:50)
[2018-12-29] MEDS ORDERED: MORPHINE SULFATE 2 MG/ML VIAL IVPUSH ONE (14:10)
--- NOTE | 2018-12-29 15:23 | EKG ---
Test Reason : Blood Pressure : / mmHG Vent. Rate : 101 BPM Atrial Rate : 101 BPM P-R Int : 142 ms QRS Dur : 078 ms QT Int : 312 ms P-R-T Axes : 057 006 004 degrees QTc Int : 404 ms SINUS TACHYCARDIA MINIMAL VOLTAGE CRITERIA FOR LVH, MAY BE NORMAL VARIANT NONSPECIFIC ST AND T WAVE ABNORMALITY ABNORMAL ECG NO PREVIOUS ECGS AVAILABLE Confirmed by EILEEN BARKLEY MD ([id number]) on 12/29/2018 3:23:24 PM Referred By: Eric JONES Confirmed By:EILEEN BARKLEY MD
[2018-12-29] MEDS ORDERED: LIDOCAINE PATCH REMOVAL MC ONE (22:00)
[2018-12-30 06:09] LABS: SERUM IRON SATURATION 15 % (15-55); TOTAL IRON BINDING CAPACITY 194 ug/dL (250-450); UIBC 165 ug/dL (131-425)
[2018-12-30] MEDS ORDERED: oxyCODONE HCL 5 MG TABLET ONE ×2 (06:33→12:04)
[2018-12-30] MEDS: oxyCODONE HCL 5 MG TABLET PO PRN ×3 (06:40→20:05)
[2018-12-30 06:52] LABS: BASO % 0.3 % (0-2.0); EOS % 1.4 % (0-4.5); HEMATOCRIT 25.5 % (32.4-45.2); HEMOGLOBIN 8.7 GM/dL (10.7-15.3); LYMPH % 25.1 % (8-40); MCH 33.4 pg (25.7-33.7); MCHC 34.2 g/dl (32.0-36.0); MEAN CELL VOLUME 97.6 fl (80-96); MEAN PLT VOLUME 8.8 fl (7.5-11.1); MONO % 7.8 % (3.8-10.2); NEUT % 65.4 % (42.8-82.8); PLATELET COUNT 184 K/MM3 (134-434); RBC 2.62 M/mm3 (3.60-5.2); RDW 18.3 % (11.6-15.6); WHITE BLOOD COUNT 7.9 K/mm3 (4.0-10.0)
[2018-12-30 07:04] LABS: INR 1.28 (0.83-1.09); PROTHROMBIN TIME (PATIENT) 15.1 SEC (9.7-13.0)
[2018-12-30 07:07] LABS: ACTIVATED PTT 40.1 SECONDS (25.2-36.5)
[2018-12-30 07:20] LABS: ANION GAP 8 MMOL/L (8-16); BLOOD UREA NITROGEN 25 mg/dL (7-18); CALCIUM 9.5 mg/dL (8.5-10.1); CHLORIDE 97 mmol/L (98-107); CO2 30 mmol/L (21-32); CREATININE 0.8 mg/dL (0.55-1.3); GLUCOSE,RANDOM 82 mg/dL (74-106); MAGNESIUM 2.1 mg/dL (1.8-2.4); PHOSPHOROUS 3.7 mg/dL (2.5-4.9); POTASSIUM 4.3 mmol/L (3.5-5.1); SODIUM 135 mmol/L (136-145)
[2018-12-30] MEDS ORDERED: LIDOCAINE 5% TOPICAL PATCH TP ONE (09:03)
[2018-12-30] MEDS ORDERED: HEPARIN NA (PORCINE) 5,000 UNITS/ML 1ML VIAL ONE (09:43)
[2018-12-30] MEDS ORDERED: CYCLOBENZAPRINE HCL 10 MG TABLET (FP) ONE (10:01)
[2018-12-30] MEDS ORDERED: ACETAMINOPHEN 325 MG TABLET (FP) ONE (10:01)
[2018-12-30] MEDS: HEPARIN NA (PORCINE) 5,000 UNITS/ML 1ML VIAL SQ SCH ×3 (10:17→21:11)
[2018-12-30] MEDS: LOSARTAN 50MG/HCTZ 12.5MG 1 TAB (FP) PO SCH (10:18)
[2018-12-30] MEDS: CYCLOBENZAPRINE HCL 10 MG TABLET (FP) PO SCH (10:18)
[2018-12-30] MEDS: MULTIVITAMINS (DAILY MVI) TABLET (FP) PO SCH (10:18)
[2018-12-30] MEDS: ACETAMINOPHEN 325 MG TABLET (FP) PO PRN (10:19)
--- NOTE | 2018-12-30 11:57 | PN ---
Physical Exam: SUBJECTIVE: Patient seen and examined at bedside, No acute distress. Back pain still there, but under control. OBJECTIVE: Vital Signs Period Temp Pulse Resp BP Sys/Ann Pulse Ox Last 24 Hr 98 F-98.2 F 77-79 16-20 128-172/66-87 96-98 GENERAL: The patient is awake, alert, and fully oriented, in no acute distress. HEAD: Normal with no signs of trauma. EYES: PERRL, extraocular movements intact, sclera anicteric, conjunctiva clear. No ptosis. ENT: Ears normal, nares patent, oropharynx clear without exudates, moist mucous membranes. NECK: Trachea midline, full range of motion, supple. LUNGS: Breath sounds equal, clear to auscultation bilaterally, no wheezes, no crackles, no accessory muscle use. HEART: Regular rate and rhythm, S1, S2 without murmur, rub or gallop. ABDOMEN: Soft, nontender, nondistended, normoactive bowel sounds, no guarding, no rebound, no hepatosplenomegaly, no masses. EXTREMITIES: Restricted ROM LE B/L for pain. NEUROLOGICAL: Cranial nerves II through XII grossly intact. Normal speech, gait not observed. PSYCH: Normal mood, normal affect. SKIN: Warm, dry, normal turgor, no rashes or lesions noted Laboratory Results - last 24 hr 12/29/18 12/29/18 12/30/18 03:35 06:33 05:50 WBC 7.9 RBC 2.62 L Hgb 8.7 L Hct 25.5 L MCV 97.6 H MCH 33.4 MCHC 34.2 RDW 18.3 H Plt Count 184 MPV 8.8 Absolute Neuts (auto) 5.2 Neutrophils % 65.4 Lymphocytes % 25.1 Monocytes % 7.8 Eosinophils % 1.4 Basophils % 0.3 Nucleated RBC % 0 PT with INR INR PTT (Actin FS) Sodium Potassium Chloride Carbon Dioxide Anion Gap BUN Creatinine Creat Clearance w eGFR Random Glucose Calcium Phosphorus Magnesium Iron 29 TIBC 194 L Iron Saturation 15 Crossmatch See Detail 12/30/18 12/30/18 05:50 05:50 WBC RBC Hgb Hct MCV MCH MCHC RDW Plt Count MPV Absolute Neuts (auto) Neutrophils % Lymphocytes % Monocytes % Eosinophils % Basophils % Nucleated RBC % PT with INR 15.10 H INR 1.28 H PTT (Actin FS) 40.1 H Sodium 135 L Potassium 4.3 Chloride 97 L Carbon Dioxide 30 Anion Gap 8 BUN 25 H Creatinine 0.8 Creat Clearance w eGFR 73.93 Random Glucose 82 Calcium 9.5 Phosphorus 3.7 Magnesium 2.1 Iron TIBC Iron Saturation Crossmatch Active Medications Generic Name Dose Route Start Last Admin Trade Name Freq PRN Reason Stop Dose Admin Acetaminophen 650 mg 12/29/18 12:17 12/30/18 10:19 Tylenol - PO 650 mg Q6H PRN Administration FEVER Baclofen 10 mg 12/30/18 10:00 Lioresal - PO BID DAVI Cyclobenzaprine HCl 10 mg 12/29/18 10:00 12/30/18 10:18 Flexeril - PO 10 mg DAILY [facility] Administration Dexamethasone 20 mg 01/02/19 10:00 Decadron - PO Th@1000 [facility] Docusate Sodium 100 mg 12/29/18 12:16 12/30/18 10:18 Colace - PO 100 mg BID PRN Administration CONSTIPATION HCTZ/Losartan Potassium 1 tab 12/29/18 10:00 12/30/18 10:18 Hyzaar - PO 1 tab DAILY [facility] Administration Heparin Sodium (Porcine) 5,000 unit 12/29/18 14:00 12/30/18 10:17 Heparin - SQ 5,000 unit TID [facility]I Administration Metoprolol Succinate 100 mg 12/29/18 10:00 12/29/18 10:23 Toprol Xl - PO 100 mg DAILY [facility] Administration Miscellaneous 1 each 12/30/18 22:00 Lidoderm Patch Removal MC DAILY@2200 [facility] Multivitamins/Minerals/Vitamin C 1 tab 12/29/18 10:00 12/30/18 10:18 Tab-A-Vit - PO 1 tab DAILY [facility]I Administration Oxycodone HCl 5 mg 12/29/18 12:16 12/30/18 06:40 Roxicodone - PO 5 mg Q3H PRN Administration PAIN LEVEL 7 - 10 ASSESSMENT/PLAN: .
--- NOTE | 2018-12-30 12:05 | PN ---
Physical Exam: SUBJECTIVE: Patient seen and examined at bedside. Pain under control. No acute distress. OBJECTIVE: Vital Signs Period Temp Pulse Resp BP Sys/Ann Pulse Ox Last 24 Hr 98 F-98.2 F 77-79 16-20 152-172/79-87 96-97 GENERAL: The patient is awake, alert, and fully oriented, in no acute distress. HEAD: Normal with no signs of trauma. EYES: PERRL, extraocular movements intact, sclera anicteric, conjunctiva clear. No ptosis. ENT: Ears normal, nares patent, oropharynx clear without exudates, moist mucous membranes. NECK: Trachea midline, full range of motion, supple. LUNGS: Breath sounds equal, clear to auscultation bilaterally, no wheezes, no crackles, no accessory muscle use. HEART: Regular rate and rhythm, S1, S2 without murmur, rub or gallop. ABDOMEN: Soft, nontender, nondistended, normoactive bowel sounds, no guarding, no rebound, no hepatosplenomegaly, no masses. EXTREMITIES: Decreased ROM LE B/L for pain. NEUROLOGICAL: Cranial nerves II through XII grossly intact. Normal speech, gait not observed. PSYCH: Normal mood, normal affect. SKIN: Warm, dry, normal turgor, no rashes or lesions noted Laboratory Results - last 24 hr 12/29/18 12/29/18 12/30/18 03:35 06:33 05:50 WBC 7.9 RBC 2.62 L Hgb 8.7 L Hct 25.5 L MCV 97.6 H MCH 33.4 MCHC 34.2 RDW 18.3 H Plt Count 184 MPV 8.8 Absolute Neuts (auto) 5.2 Neutrophils % 65.4 Lymphocytes % 25.1 Monocytes % 7.8 Eosinophils % 1.4 Basophils % 0.3 Nucleated RBC % 0 PT with INR INR PTT (Actin FS) Sodium Potassium Chloride Carbon Dioxide Anion Gap BUN Creatinine Creat Clearance w eGFR Random Glucose Calcium Phosphorus Magnesium Iron 29 TIBC 194 L Iron Saturation 15 Crossmatch See Detail 12/30/18 12/30/18 05:50 05:50 WBC RBC Hgb Hct MCV MCH MCHC RDW Plt Count MPV Absolute Neuts (auto) Neutrophils % Lymphocytes % Monocytes % Eosinophils % Basophils % Nucleated RBC % PT with INR 15.10 H INR 1.28 H PTT (Actin FS) 40.1 H Sodium 135 L Potassium 4.3 Chloride 97 L Carbon Dioxide 30 Anion Gap 8 BUN 25 H Creatinine 0.8 Creat Clearance w eGFR 73.93 Random Glucose 82 Calcium 9.5 Phosphorus 3.7 Magnesium 2.1 Iron TIBC Iron Saturation Crossmatch Active Medications Generic Name Dose Route Start Last Admin Trade Name Freq PRN Reason Stop Dose Admin Acetaminophen 650 mg 12/29/18 12:17 12/30/18 10:19 Tylenol - PO 650 mg Q6H PRN Administration FEVER Baclofen 10 mg 12/30/18 10:00 Lioresal - PO BID DAVI Cyclobenzaprine HCl 10 mg 12/29/18 10:00 12/30/18 10:18 Flexeril - PO 10 mg DAILY DAVI Administration Dexamethasone 20 mg 01/02/19 10:00 Decadron - PO Th@1000 [facility] Docusate Sodium 100 mg 12/29/18 12:16 12/30/18 10:18 Colace - PO 100 mg BID PRN Administration CONSTIPATION HCTZ/Losartan Potassium 1 tab 12/29/18 10:00 12/30/18 10:18 Hyzaar - PO 1 tab DAILY DAVI Administration Heparin Sodium (Porcine) 5,000 unit 12/29/18 14:00 12/30/18 10:17 Heparin - SQ 5,000 unit TID DAVI Administration Metoprolol Succinate 100 mg 12/29/18 10:00 12/29/18 10:23 Toprol Xl - PO 100 mg DAILY DAVI Administration Miscellaneous 1 each 12/30/18 22:00 Lidoderm Patch Removal MC DAILY@2200 [facility] Multivitamins/Minerals/Vitamin C 1 tab 12/29/18 10:00 12/30/18 10:18 Tab-A-Vit - PO 1 tab DAILY DAVI Administration Oxycodone HCl 5 mg 12/29/18 12:16 12/30/18 06:40 Roxicodone - PO 5 mg Q3H PRN Administration PAIN LEVEL 7 - 10 ASSESSMENT/PLAN: Patient is a 58 year old female with past medical history of chronic back pain, anemia, HTN, and multiple myeloma, presented to the ED due to worsening low back pain in the last 2 weeks. # Functional decline 2/2 acute on chronic Low back pain -Likely 2/2 multiple myeloma -MRI (12/03/1018): At C5-C6 level, disc bulge minimally effaces the anterior subarachnoid space but does not indent the cord. Mild bilateral facet joint and uncovertebral joint arthropathy changes to cause at least mild bilateral foraminal compromise. Similar changes in C6-C7 level. In the lower thoracic spine, bilateral ligamenta flava thickening. In the lumbar region, disc bulges to minimally indent the thecal sac from the L3-L4 and L5-S1 levels. No spinal canal or foraminal compromise. -Cervical, thoracic, lumbar spine CT ordered. -Pain control with Oxycodone 5mg . Would add long acting oxycontin. -Bowel regimen -Continue home Baclofen and Flexeril -Physical therapy #Multiple myeloma -Receives weekly dose of steroids from heme-onc Dr. Pickett (follow up on Sunday) -will monitor CBC, BMP -Anemia likely 2/2 MM #Hypertension -Continue home Losartan 50/HCTZ 12.5 daily -Continue Metoprolol XL 100 mg daily #FEN -Not on any standing fluids -Electrolytes wnl, routine bmp monitoring -Sodium controlled diet #Prophylaxis -Heparin 5000units sq tid #Disposition -full code -physical therapy evaluation Needs safe d/c plan. Visit type - Emergency Visit Emergency Visit: Yes ED Registration Date: 12/29/18 Care time: The patient presented to the Emergency Department on the above date and was hospitalized for further evaluation of their emergent condition. - New Patient This patient is new to me today: Yes Date on this admission: 12/30/18 - Critical Care Critical Care patient: No - Discharge Referral Referred to [facility] Med P.C.: No
--- NOTE | 2018-12-30 17:14 | PN ---
Physical Exam: SUBJECTIVE: Patient seen and examined at bedside this morning. Patient reported improvement of back pain with lidocaine patch. Has had no BM since admission. Denies fever, chills, headache, dizziness, chest pain, shortness of breath, abdominal pain, urinary symptoms. OBJECTIVE: Vital Signs Temperature 98.4 F 12/30/18 14:30 Pulse Rate 78 12/30/18 14:30 Respiratory Rate 20 12/30/18 14:30 Blood Pressure 143/79 12/30/18 14:30 O2 Sat by Pulse Oximetry (%) 98 12/30/18 12:11 GENERAL: Awake, alert, and fully oriented, in no acute distress. HEAD: Normal with no signs of trauma. EYES: PERRLA, EOMI, sclera anicteric, conjunctiva clear. EARS, NOSE, THROAT: oropharynx clear without exudates. Moist mucous membranes. NECK: Normal range of motion, supple without lymphadenopathy, JVD, or masses. LUNGS: Breath sounds equal, clear to auscultation bilaterally. HEART: Regular rate and rhythm, normal S1 and S2 without murmur, rub or gallop. ABDOMEN: Soft, nontender, not distended, normoactive bowel sounds. MUSCULOSKELETAL: Normal range of motion of bilateral UE. Limited AROM/PROM bilateral LE due to pain. UPPER EXTREMITIES: 2+ pulses, warm, well-perfused. No peripheral edema. LOWER EXTREMITIES: 2+ pulses, warm, well-perfused.No peripheral edema. NEUROLOGICAL: AAOx3, Cranial nerves II-XII intact. Normal speech. Motor strength 5/5, sensation intact on all extremities. DTRs +2. Gait not observed as patient screams in pain with minimal LE movement. PSYCHIATRIC: Cooperative. Good eye contact. Appropriate mood and affect. SKIN: Warm, dry, normal turgor, no rashes or lesions noted, normal capillary refill. Laboratory Results - last 24 hr 12/29/18 12/30/18 12/30/18 06:33 05:50 05:50 WBC 7.9 RBC 2.62 L Hgb 8.7 L Hct 25.5 L MCV 97.6 H MCH 33.4 MCHC 34.2 RDW 18.3 H Plt Count 184 MPV 8.8 Absolute Neuts (auto) 5.2 Neutrophils % 65.4 Lymphocytes % 25.1 Monocytes % 7.8 Eosinophils % 1.4 Basophils % 0.3 Nucleated RBC % 0 PT with INR INR PTT (Actin FS) Sodium 135 L Potassium 4.3 Chloride 97 L Carbon Dioxide 30 Anion Gap 8 BUN 25 H Creatinine 0.8 Creat Clearance w eGFR 73.93 Random Glucose 82 Calcium 9.5 Phosphorus 3.7 Magnesium 2.1 Iron 29 TIBC 194 L Iron Saturation 15 12/30/18 05:50 WBC RBC Hgb Hct MCV MCH MCHC RDW Plt Count MPV Absolute Neuts (auto) Neutrophils % Lymphocytes % Monocytes % Eosinophils % Basophils % Nucleated RBC % PT with INR 15.10 H INR 1.28 H PTT (Actin FS) 40.1 H Sodium Potassium Chloride Carbon Dioxide Anion Gap BUN Creatinine Creat Clearance w eGFR Random Glucose Calcium Phosphorus Magnesium Iron TIBC Iron Saturation Active Medications Generic Name Dose Route Start Last Admin Trade Name Freq PRN Reason Stop Dose Admin Acetaminophen 650 mg 12/29/18 12:17 12/30/18 10:19 Tylenol - PO 650 mg Q6H PRN Administration FEVER Baclofen 10 mg 12/30/18 10:00 Lioresal - PO BID [facility] Cyclobenzaprine HCl 10 mg 12/29/18 10:00 12/30/18 10:18 Flexeril - PO 10 mg DAILY DAVI Administration Dexamethasone 20 mg 01/02/19 10:00 Decadron - PO Th@1000 [facility] Docusate Sodium 100 mg 12/29/18 12:16 12/30/18 10:18 Colace - PO 100 mg BID PRN Administration CONSTIPATION HCTZ/Losartan Potassium 1 tab 12/29/18 10:00 12/30/18 10:18 Hyzaar - PO 1 tab DAILY DAVI Administration Heparin Sodium (Porcine) 5,000 unit 12/29/18 14:00 12/30/18 15:45 Heparin - SQ 5,000 unit TID DAVI Administration Metoprolol Succinate 100 mg 12/29/18 10:00 12/30/18 10:00 Toprol Xl - PO 100 mg DAILY DAVI Administration Miscellaneous 1 each 12/30/18 22:00 Lidoderm Patch Removal MC DAILY@2200 [facility] Multivitamins/Minerals/Vitamin C 1 tab 12/29/18 10:00 12/30/18 10:18 Tab-A-Vit - PO 1 tab DAILY DAVI Administration Oxycodone HCl 5 mg 12/29/18 12:16 12/30/18 12:05 Roxicodone - PO 5 mg Q3H PRN Administration PAIN LEVEL 7 - 10 Oxycodone HCl 10 mg 12/31/18 10:00 Oxycontin - PO DAILY DAVI -MRI (12/03/1018): At C5-C6 level, disc bulge minimally effaces the anterior subarachnoid space but does not indent the cord. Mild bilateral facet joint and uncovertebral joint arthropathy changes to cause at least mild bilateral foraminal compromise. Similar changes in C6-C7 level. In the lower thoracic spine, bilateral ligamenta flava thickening. In the lumbar region, disc bulges to minimally indent the thecal sac from the L3-L4 and L5-S1 levels. No spinal canal or foraminal compromise. -Cervical CT: Diffuse faint mottling of the vertebral bodies compatible with the clinical history of an infiltrative process/multiple myeloma. No compression fracture or subluxation. C5-C6 mild to moderate degenerative disc disease, mild broad-based disc bulge and mild left paracentral posterior spur formation. C6-C7 moderate degenerative disc disease and mild broad-based disc bulge without gross nerve root impingement. -Thoracic CT: Findings compatible with diffuse infiltrative process/small lytic lesions compatible with the clinical history of multiple myeloma. There is minimal compression of T11 superior endplate. Mild compression of T12 superior endplate with minimal retropulsion of its posterior/superior margin and without any significant compromise of the spinal canal. Bibasal atelectatic chagnes and small bilateral pleural effusion. -Lumbar CT: Diffuse bone infiltration/metastasis compatible with hx of MM. Mild compression of L2 superior endplate, likely recent. There is also minimal central compression of L3-L4 vertebral bodies. Moderate posterior compression of L5 vertebral body, likely chronic with mild retropulsion resulting in mild canal stenosis. ASSESSMENT/PLAN: Patient is a 58 year old female with past medical history of chronic back pain, anemia, HTN, and multiple myeloma, presented to the ED due to worsening low back pain in the last 2 weeks. #Low back pain -Likely 2/2 multiple myeloma -MRI (12/03/1018): At C5-C6 level, disc bulge minimally effaces the anterior subarachnoid space but does not indent the cord. Mild bilateral facet joint and uncovertebral joint arthropathy changes to cause at least mild bilateral foraminal compromise. Similar changes in C6-C7 level. In the lower thoracic spine, bilateral ligamenta flava thickening. In the lumbar region, disc bulges to minimally indent the thecal sac from the L3-L4 and L5-S1 levels. No spinal canal or foraminal compromise. -Cervical, thoracic, lumbar spine CT done -Pain control with Oxycontin 10mg daily with Oxycodone 5mg PRN and Tylenol 650mg -Bowel regimen -Continue home Baclofen and Flexeril -Physical therapy #Multiple myeloma -Receives weekly dose of steroids from heme-onc Dr. Pickett (follow up on Sunday) -will monitor CBC, BMP -Anemia likely 2/2 MM #Hypertension -Continue home Losartan 50/HCTZ 12.5 daily -Continue Metoprolol XL 100 mg daily #FEN -Not on any standing fluids -Electrolytes wnl, routine bmp monitoring -Sodium controlled diet #Prophylaxis -Heparin 5000units sq tid #Disposition -full code -med surg Visit type - Emergency Visit Emergency Visit: Yes ED Registration Date: 12/30/18 Care time: The patient presented to the Emergency Department on the above date and was hospitalized for further evaluation of their emergent condition. - New Patient This patient is new to me today: No - Critical Care Critical Care patient: No
[2018-12-30] MEDS ORDERED: PT OWN MED DRAWER 7, Y5N ONE (20:51)
[2018-12-30] MEDS ORDERED: LIDOCAINE PATCH REMOVAL MC SCH (22:00)
[2018-12-30] MEDS ORDERED: BACLOFEN 10 MG TABLET (FP) PO SCH (22:30)
[2018-12-31] MEDS: HEPARIN NA (PORCINE) 5,000 UNITS/ML 1ML VIAL SQ SCH ×3 (05:45→21:40)
[2018-12-31] MEDS ORDERED: LIDOCAINE 5% TOPICAL PATCH TP ONE (07:26)
[2018-12-31 08:57] LABS: BASO % 0.4 % (0-2.0); EOS % 2.2 % (0-4.5); HEMATOCRIT 24.8 % (32.4-45.2); HEMOGLOBIN 8.3 GM/dL (10.7-15.3); LYMPH % 28.1 % (8-40); MCH 32.6 pg (25.7-33.7); MCHC 33.4 g/dl (32.0-36.0); MEAN CELL VOLUME 97.5 fl (80-96); MEAN PLT VOLUME 8.7 fl (7.5-11.1); MONO % 6.3 % (3.8-10.2); PLATELET COUNT 183 K/MM3 (134-434); RBC 2.55 M/mm3 (3.60-5.2); WHITE BLOOD COUNT 7.5 K/mm3 (4.0-10.0)
[2018-12-31 09:33] LABS: ANION GAP 9 MMOL/L (8-16); BLOOD UREA NITROGEN 29 mg/dL (7-18); CALCIUM 9.2 mg/dL (8.5-10.1); CHLORIDE 99 mmol/L (98-107); CO2 29 mmol/L (21-32); CREATININE 0.9 mg/dL (0.55-1.3); GLUCOSE,RANDOM 86 mg/dL (74-106); MAGNESIUM 2.3 mg/dL (1.8-2.4); PHOSPHOROUS 3.2 mg/dL (2.5-4.9); POTASSIUM 4.2 mmol/L (3.5-5.1); SODIUM 138 mmol/L (136-145)
[2018-12-31] MEDS: MULTIVITAMINS (DAILY MVI) TABLET (FP) PO SCH (10:03)
[2018-12-31] MEDS: oxyCODONE HCL 10 MG SUSTAINED ACTING TABLET PO SCH (10:03)
[2018-12-31] MEDS: CYCLOBENZAPRINE HCL 10 MG TABLET (FP) PO SCH (10:03)
[2018-12-31] MEDS: LOSARTAN 50MG/HCTZ 12.5MG 1 TAB (FP) PO SCH (10:03)
--- NOTE | 2018-12-31 11:29 | PN ---
Physical Exam: SUBJECTIVE: Patient seen and examined at bedside this morning. No acute events overnight. Patient still reports of back pain today, slightly relieved by medications. She walked a few steps with physical therapy today but with severe pain afterwards. She has not had any bowel movement since admission. She denies fever, chills, headache, chest pain, SOB, abdominal pain, diarrhea, urinary symptoms. OBJECTIVE: Vital Signs Temperature 98.3 F 12/31/18 06:33 Pulse Rate 90 12/31/18 06:33 Respiratory Rate 20 12/31/18 06:33 Blood Pressure 130/77 12/31/18 06:33 O2 Sat by Pulse Oximetry (%) 98 12/30/18 12:11 GENERAL: Awake, alert, and fully oriented, in no acute distress. HEAD: Normal with no signs of trauma. EYES: PERRLA, EOMI, sclera anicteric, conjunctiva clear. EARS, NOSE, THROAT: oropharynx clear without exudates. Moist mucous membranes. NECK: Normal range of motion, supple without lymphadenopathy, JVD, or masses. LUNGS: Breath sounds equal, clear to auscultation bilaterally. HEART: Regular rate and rhythm, normal S1 and S2 without murmur, rub or gallop. ABDOMEN: Soft, nontender, not distended, normoactive bowel sounds. MUSCULOSKELETAL: Normal range of motion of bilateral UE. Limited AROM/PROM bilateral LE due to pain. UPPER EXTREMITIES: 2+ pulses, warm, well-perfused. No peripheral edema. LOWER EXTREMITIES: 2+ pulses, warm, well-perfused.No peripheral edema. NEUROLOGICAL: AAOx3, Cranial nerves II-XII intact. Normal speech. Motor strength 5/5, sensation intact on all extremities. DTRs +2. PSYCHIATRIC: Cooperative. Good eye contact. Appropriate mood and affect. SKIN: Warm, dry, normal turgor, no rashes or lesions noted, normal capillary refill. Laboratory Results - last 24 hr 12/29/18 12/31/18 12/31/18 06:33 08:29 08:29 WBC 7.5 RBC 2.55 L Hgb 8.3 L Hct 24.8 L MCV 97.5 H MCH 32.6 MCHC 33.4 RDW 18.0 H Plt Count 183 MPV 8.7 Absolute Neuts (auto) 4.7 Neutrophils % 63.0 Lymphocytes % 28.1 Monocytes % 6.3 Eosinophils % 2.2 Basophils % 0.4 Nucleated RBC % 0 Sodium 138 Potassium 4.2 Chloride 99 Carbon Dioxide 29 Anion Gap 9 BUN 29 H Creatinine 0.9 Creat Clearance w eGFR 64.54 Random Glucose 86 Calcium 9.2 Phosphorus 3.2 Magnesium 2.3 [id number] (%) Cancelled Kclui-5-Paeouxras (%) Cancelled Beta Globulins (%) Cancelled Gamma Globulins (%) Cancelled M-Vincent % Cancelled Ref Test Comments Cancelled Active Medications Generic Name Dose Route Start Last Admin Trade Name Freq PRN Reason Stop Dose Admin Acetaminophen 650 mg 12/29/18 12:17 12/30/18 10:19 Tylenol - PO 650 mg Q6H PRN Administration FEVER Baclofen 10 mg 12/30/18 22:30 Lioresal - PO BID [facility] Cyclobenzaprine HCl 10 mg 01/01/19 10:00 Flexeril - PO DAILY [facility] Dexamethasone 20 mg 01/02/19 10:00 Decadron - PO Th@1000 [facility] Docusate Sodium 100 mg 12/31/18 22:00 Colace - PO BID [facility] HCTZ/Losartan Potassium 1 tab 12/29/18 10:00 12/31/18 10:03 Hyzaar - PO 1 tab DAILY [facility] Administration Heparin Sodium (Porcine) 5,000 unit 12/29/18 14:00 12/31/18 05:45 Heparin - SQ 5,000 unit TID [facility] Administration Metoprolol Succinate 100 mg 12/29/18 10:00 12/31/18 10:04 Toprol Xl - PO 100 mg DAILY [facility] Administration Miscellaneous 1 each 12/31/18 22:00 Lidoderm Patch Removal DAILY@2200 [facility] Multivitamins/Minerals/Vitamin C 1 tab 12/29/18 10:00 12/31/18 10:03 Tab-A-Vit - PO 1 tab DAILY [facility] Administration Oxycodone HCl 5 mg 12/29/18 12:16 12/30/18 20:05 Roxicodone - PO 5 mg Q3H PRN Administration PAIN LEVEL 7 - 10 Oxycodone HCl 10 mg 12/31/18 10:00 12/31/18 10:03 Oxycontin - PO 10 mg DAILY [facility] Administration -MRI (12/03/1018): At C5-C6 level, disc bulge minimally effaces the anterior subarachnoid space but does not indent the cord. Mild bilateral facet joint and uncovertebral joint arthropathy changes to cause at least mild bilateral foraminal compromise. Similar changes in C6-C7 level. In the lower thoracic spine, bilateral ligamenta flava thickening. In the lumbar region, disc bulges to minimally indent the thecal sac from the L3-L4 and L5-S1 levels. No spinal canal or foraminal compromise. -Cervical CT: Diffuse faint mottling of the vertebral bodies compatible with the clinical history of an infiltrative process/multiple myeloma. No compression fracture or subluxation. C5-C6 mild to moderate degenerative disc disease, mild broad-based disc bulge and mild left paracentral posterior spur formation. C6-C7 moderate degenerative disc disease and mild broad-based disc bulge without gross nerve root impingement. -Thoracic CT: Findings compatible with diffuse infiltrative process/small lytic lesions compatible with the clinical history of multiple myeloma. There is minimal compression of T11 superior endplate. Mild compression of T12 superior endplate with minimal retropulsion of its posterior/superior margin and without any significant compromise of the spinal canal. Bibasal atelectatic chagnes and small bilateral pleural effusion. -Lumbar CT: Diffuse bone infiltration/metastasis compatible with hx of MM. Mild compression of L2 superior endplate, likely recent. There is also minimal central compression of L3-L4 vertebral bodies. Moderate posterior compression of L5 vertebral body, likely chronic with mild retropulsion resulting in mild canal stenosis. ASSESSMENT/PLAN: Patient is a 58 year old female with past medical history of chronic back pain, anemia, HTN, and multiple myeloma, presented to the ED due to worsening low back pain in the last 2 weeks. #Low back pain -Likely 2/2 multiple myeloma -Pain control with Oxycontin 10mg daily with Oxycodone 5mg PRN and Tylenol 650mg -Bowel regimen with Colace -Continue home Baclofen and Flexeril -Physical therapy #Multiple myeloma -Receives weekly dose of steroids from heme-onc Dr. Pickett (follow up on Sunday) -will monitor CBC, BMP -Anemia likely 2/2 MM #Hypertension -Continue home Losartan 50/HCTZ 12.5 daily -Continue Metoprolol XL 100 mg daily #FEN -Not on any standing fluids -Electrolytes wnl, routine bmp monitoring -Sodium controlled diet #Prophylaxis -Heparin 5000units sq tid #Disposition -full code -Likely for SNF placement, patient agreeable Visit type - Emergency Visit Emergency Visit: Yes ED Registration Date: 12/30/18 Care time: The patient presented to the Emergency Department on the above date and was hospitalized for further evaluation of their emergent condition. - New Patient This patient is new to me today: No - Critical Care Critical Care patient: No
[2018-12-31] MEDS ORDERED: CYCLOBENZAPRINE HCL 10 MG TABLET (FP) PO SCH (14:00)
[2018-12-31] MEDS: oxyCODONE HCL 5 MG TABLET PO PRN ×2 (17:37→20:31)
[2018-12-31] MEDS: BACLOFEN 10 MG TABLET (FP) PO SCH (19:19)
[2018-12-31] MEDS: DOCUSATE SODIUM 100 MG CAPSULE (FP) PO SCH (21:40)
[2018-12-31] MEDS ORDERED: LIDOCAINE PATCH REMOVAL MC SCH (22:00)
[2019-01-01] MEDS: HEPARIN NA (PORCINE) 5,000 UNITS/ML 1ML VIAL SQ SCH ×3 (06:11→21:12)
[2019-01-01] MEDS: oxyCODONE HCL 5 MG TABLET PO PRN ×2 (07:45→22:21)
[2019-01-01 08:11] LABS: HEMATOCRIT 23.7 % (32.4-45.2); HEMOGLOBIN 7.8 GM/dL (10.7-15.3); MCH 32.3 pg (25.7-33.7); MCHC 33.2 g/dl (32.0-36.0); MEAN CELL VOLUME 97.2 fl (80-96); MEAN PLT VOLUME 8.8 fl (7.5-11.1); PLATELET COUNT 211 K/MM3 (134-434); RBC 2.43 M/mm3 (3.60-5.2); RDW 18.2 % (11.6-15.6); WHITE BLOOD COUNT 9.4 K/mm3 (4.0-10.0)
[2019-01-01 08:13] LABS: ANION GAP 7 MMOL/L (8-16); BLOOD UREA NITROGEN 30 mg/dL (7-18); CALCIUM 9.3 mg/dL (8.5-10.1); CHLORIDE 97 mmol/L (98-107); CO2 30 mmol/L (21-32); CREATININE 0.9 mg/dL (0.55-1.3); GLUCOSE,RANDOM 88 mg/dL (74-106); MAGNESIUM 2.3 mg/dL (1.8-2.4); PHOSPHOROUS 3.1 mg/dL (2.5-4.9); POTASSIUM 4.6 mmol/L (3.5-5.1); SODIUM 134 mmol/L (136-145)
[2019-01-01] MEDS: LOSARTAN 50MG/HCTZ 12.5MG 1 TAB (FP) PO SCH (10:21)
[2019-01-01] MEDS: DOCUSATE SODIUM 100 MG CAPSULE (FP) PO SCH ×2 (10:21→21:12)
[2019-01-01] MEDS: oxyCODONE HCL 10 MG SUSTAINED ACTING TABLET PO SCH (10:21)
[2019-01-01] MEDS: MULTIVITAMINS (DAILY MVI) TABLET (FP) PO SCH (10:21)
[2019-01-01] MEDS: CYCLOBENZAPRINE HCL 10 MG TABLET (FP) PO SCH (10:22)
[2019-01-01] MEDS: POLYETHYLENE GLYCOL 3350 119 GM BTL PO SCH (15:42)
[2019-01-01] MEDS: LIDOCAINE 5% TOPICAL PATCH TP SCH (15:42)
--- NOTE | 2019-01-01 17:12 | PN ---
Teaching Attending Note Name of Resident: Shilpi Garcia ATTENDING PHYSICIAN STATEMENT I saw and evaluated the patient. I reviewed the resident's note and discussed the case with the resident. I agree with the resident's findings and plan as documented. SUBJECTIVE: No fever or chills. No Abd pain. has back pain wiht no radiation . no urinary or bladder incontinence. no sciatica. no saddle anesthesia, no fever or chills. OBJECTIVE: NAD Cv: RRR, no mRG Lungfs: CTAB Ext : no edmea Neuro of LE: strength : hip flexion 3/5 both sides ( limited by pain ) . unable to cooperate with knee flexion and extension. ankle dorsiflexion and plantar flexion 5/5 . reflexes 2+ ankle jerk and 3/6 knee jerk. nl sensation to light touch. No saddle anesthesia . no erythema on skin over Spine area ASSESSMENT AND PLAN: 58 y/o lady with history of MM, HTN chronic back pain, anemia, and other medical problems who presented with worsening lower back pain 1- Acute on chronic lower back pain. due to compression Fx of vertebral bodies. no compromise of cord and no red flags on exam. -CT scan reviewed, and L spine MRI from 05/21 reviewed. - case d/w Dr. Ramos in a consult. Pt to be seen, but after reviewing the images, No procedure is recommended. and TLCO or an abdominal binder is recommended - add lidocaine patch - cont oxycodone and oxycontin - PT - add bowel regimen 2- h/o MM : cont her weekly steroids and f/u with her oncologist 3- anemia: chronic. due to MM. iron studies noted. check B12, folate due to macrocytosis dispo : SNF bed pending. possibly tomorrow if no additional Recs form Neuro sx
[2019-01-01] MEDS ORDERED: SENNOSIDES/DOCUSATE COMBO (SENNA PLUS) TABLET (UD) PO PRN (17:29)
--- NOTE | 2019-01-01 17:50 | PN ---
Physical Exam: SUBJECTIVE: Patient seen and examined at bedside this morning. No acute events overnight. Patient still reports back pain. No BM yet. OBJECTIVE: Vital Signs Temperature 98.2 F 01/01/19 16:51 Pulse Rate 86 01/01/19 16:51 Respiratory Rate 20 01/01/19 16:51 Blood Pressure 117/99 01/01/19 16:51 O2 Sat by Pulse Oximetry (%) 95 01/01/19 09:00 GENERAL: Awake, alert, and fully oriented, in no acute distress. HEAD: Normal with no signs of trauma. EYES: PERRLA, EOMI, sclera anicteric, conjunctiva clear. EARS, NOSE, THROAT: oropharynx clear without exudates. Moist mucous membranes. NECK: Normal range of motion, supple without lymphadenopathy, JVD, or masses. LUNGS: Breath sounds equal, clear to auscultation bilaterally. HEART: Regular rate and rhythm, normal S1 and S2 without murmur, rub or gallop. ABDOMEN: Soft, nontender, not distended, normoactive bowel sounds. MUSCULOSKELETAL: Normal range of motion of bilateral UE. Limited AROM/PROM bilateral LE due to pain. UPPER EXTREMITIES: 2+ pulses, warm, well-perfused. No peripheral edema. LOWER EXTREMITIES: 2+ pulses, warm, well-perfused.No peripheral edema. NEUROLOGICAL: AAOx3, Cranial nerves II-XII intact. Normal speech. Motor strength 5/5, sensation intact on all extremities. DTRs +2. PSYCHIATRIC: Cooperative. Good eye contact. Appropriate mood and affect. SKIN: Warm, dry, normal turgor, no rashes or lesions noted, normal capillary refill. Laboratory Results - last 24 hr 12/29/18 01/01/19 01/01/19 06:33 06:30 06:30 WBC 9.4 RBC 2.43 L Hgb 7.8 L Hct 23.7 L MCV 97.2 H MCH 32.3 MCHC 33.2 RDW 18.2 H Plt Count 211 MPV 8.8 Sodium 134 L Potassium 4.6 Chloride 97 L Carbon Dioxide 30 Anion Gap 7 L BUN 30 H Creatinine 0.9 Creat Clearance w eGFR 64.54 Random Glucose 88 Calcium 9.3 Phosphorus 3.1 Magnesium 2.3 Total Protein (PEP) 8.6 H Albumin (PEP) 3.2 Globulin 5.4 H Albumin/Globulin Ratio 0.6 L Beta Globulins 4.5 H YARA M-Vincent 4.2 H Active Medications Generic Name Dose Route Start Last Admin Trade Name Freq PRN Reason Stop Dose Admin Acetaminophen 650 mg 12/29/18 12:17 12/30/18 10:19 Tylenol - PO 650 mg Q6H PRN Administration FEVER Baclofen 10 mg 01/01/19 22:00 Lioresal - PO BID DAVI Cyclobenzaprine HCl 10 mg 01/01/19 10:00 01/01/19 10:22 Flexeril - PO 10 mg DAILY DAVI Administration Dexamethasone 20 mg 01/02/19 10:00 Decadron - PO Th@1000 DAVI Docusate Sodium 100 mg 12/31/18 22:00 01/01/19 10:21 Colace - PO 100 mg BID DAVI Administration HCTZ/Losartan Potassium 1 tab 12/29/18 10:00 01/01/19 10:21 Hyzaar - PO 1 tab DAILY DAVI Administration Heparin Sodium (Porcine) 5,000 unit 12/29/18 14:00 01/01/19 14:24 Heparin - SQ 5,000 unit TID DAVI Administration Lidocaine 1 patch 01/01/19 15:00 01/01/19 15:42 Lidoderm Patch - TP 1 patch DAILY DAVI Administration Metoprolol Succinate 100 mg 12/29/18 10:00 01/01/19 10:21 Toprol Xl - PO 100 mg DAILY DAVI Administration Miscellaneous 1 each 01/01/19 22:00 Lidoderm Patch Removal MC DAILY@2200 DAVI Multivitamins/Minerals/Vitamin C 1 tab 12/29/18 10:00 01/01/19 10:21 Tab-A-Vit - PO 1 tab DAILY DAVI Administration Oxycodone HCl 5 mg 12/29/18 12:16 01/01/19 07:45 Roxicodone - PO 5 mg Q3H PRN Administration PAIN LEVEL 7 - 10 Oxycodone HCl 10 mg 12/31/18 10:00 01/01/19 10:21 Oxycontin - PO 10 mg DAILY DAVI Administration Polyethylene Glycol 17 gm 01/01/19 15:00 01/01/19 15:42 Miralax (For Daily Use) - PO 17 gm DAILY DAVI Administration Senna/Docusate Sodium 2 tablet 01/01/19 17:29 Pericolace - PO HS PRN CONSTIPATION -MRI (12/03/1018): At C5-C6 level, disc bulge minimally effaces the anterior subarachnoid space but does not indent the cord. Mild bilateral facet joint and uncovertebral joint arthropathy changes to cause at least mild bilateral foraminal compromise. Similar changes in C6-C7 level. In the lower thoracic spine, bilateral ligamenta flava thickening. In the lumbar region, disc bulges to minimally indent the thecal sac from the L3-L4 and L5-S1 levels. No spinal canal or foraminal compromise. -Cervical CT: Diffuse faint mottling of the vertebral bodies compatible with the clinical history of an infiltrative process/multiple myeloma. No compression fracture or subluxation. C5-C6 mild to moderate degenerative disc disease, mild broad-based disc bulge and mild left paracentral posterior spur formation. C6-C7 moderate degenerative disc disease and mild broad-based disc bulge without gross nerve root impingement. -Thoracic CT: Findings compatible with diffuse infiltrative process/small lytic lesions compatible with the clinical history of multiple myeloma. There is minimal compression of T11 superior endplate. Mild compression of T12 superior endplate with minimal retropulsion of its posterior/superior margin and without any significant compromise of the spinal canal. Bibasal atelectatic chagnes and small bilateral pleural effusion. -Lumbar CT: Diffuse bone infiltration/metastasis compatible with hx of MM. Mild compression of L2 superior endplate, likely recent. There is also minimal central compression of L3-L4 vertebral bodies. Moderate posterior compression of L5 vertebral body, likely chronic with mild retropulsion resulting in mild canal stenosis. ASSESSMENT/PLAN: Patient is a 58 year old female with past medical history of chronic back pain, anemia, HTN, and multiple myeloma, presented to the ED due to worsening low back pain in the last 2 weeks. #Low back pain -Likely 2/2 multiple myeloma -Pain control with Oxycontin 10mg daily with Oxycodone 5mg PRN and Tylenol 650mg -Bowel regimen with Colace and Miralax -Continue home Baclofen and Flexeril -Physical therapy -Neurology (Dr. Sr) consulted. Recommendations appreciated. -No surgical intervention -Abdominal brace for support #Multiple myeloma -Receives weekly dose of steroids from heme-onc Dr. Pickett (follow up on Sunday) -will monitor CBC, BMP -Anemia likely 2/2 MM #Hypertension -Continue home Losartan 50/HCTZ 12.5 daily -Continue Metoprolol XL 100 mg daily #FEN -Not on any standing fluids -Electrolytes wnl, routine bmp monitoring -Sodium controlled diet #Prophylaxis -Heparin 5000units sq tid #Disposition -full code -For SNF placement, awaiting auth Visit type - Emergency Visit Emergency Visit: Yes ED Registration Date: 12/30/18 Care time: The patient presented to the Emergency Department on the above date and was hospitalized for further evaluation of their emergent condition. - New Patient This patient is new to me today: No - Critical Care Critical Care patient: No
[2019-01-01] MEDS: BACLOFEN 10 MG TABLET (FP) PO SCH (21:12)
[2019-01-01] MEDS ORDERED: LIDOCAINE PATCH REMOVAL MC SCH (22:00)
--- NOTE | 2019-01-01 22:14 | CONSULT ---
Consult - text type - Consultation Consultation Note: NEUROSURGERY CONSULTATION Nila Gonzalez is a 58 year old Latin female with a history of back pain and a recent diagnosis of Multiple Myeloma. She presented to the [facility] ER with a 2 week history of progressive back pain which has largely rendered her bed bound. Any weight bearing or motion results in severe paroxysms of pain. Even turning in bed is exceptionally painful. MRI of the complete spine from 2 weks ago demonstrates mild, multilevel degenerative changes. CT demonstrates multiple foci of Multiple Myeloma as well as endplate and body fractures at multiple levels. There is moderate spondylosis at C56 & C67, T11 and T12 endplate fractures and Lumbar fractures at L2, L3, and L4. There is a moderate, burst fracture of L5 with minimal retropulsion and loss of height which was not seen on the MRI from 2 weeks ago. There is no other obvious retropulsion of bone or canal compromise. There is general preservation of her alignment. On Physical Exam, she has grossly full strength and no bowel or bladder dysfunction. Exam is limited by pain associated with weight bearing, turning or axial strain. Most likely, the L5 burst fracture is new and compatible with her progression of symptoms. Since there is no clear associated neurological deficit and no malalignment, initial treatment with medications and immobilization with an abdominal binder would be reasonable. If her symptoms persist or she cannot stand and bear weight, she may benefit from TLSO bracing. If the pain persists and can be localized to the L5 fracture, focal cement augmentation versus short construct stabilization may be considered for mechanical pain refractory to all conservative efforts. - Abdominal Binder - GI/DVT prophylaxis - Physical Therapy
[2019-01-02] MEDS: HEPARIN NA (PORCINE) 5,000 UNITS/ML 1ML VIAL SQ SCH ×2 (06:00→13:09)
[2019-01-02] MEDS: DOCUSATE SODIUM 100 MG CAPSULE (FP) PO SCH (09:05)
[2019-01-02] MEDS: ACETAMINOPHEN 325 MG TABLET (FP) PO PRN (09:05)
[2019-01-02] MEDS: CYCLOBENZAPRINE HCL 10 MG TABLET (FP) PO SCH (09:05)
[2019-01-02] MEDS: LOSARTAN 50MG/HCTZ 12.5MG 1 TAB (FP) PO SCH (09:05)
[2019-01-02] MEDS: MULTIVITAMINS (DAILY MVI) TABLET (FP) PO SCH (09:06)
[2019-01-02] MEDS: oxyCODONE HCL 10 MG SUSTAINED ACTING TABLET PO SCH (09:06)
[2019-01-02] MEDS: LIDOCAINE 5% TOPICAL PATCH TP SCH (09:06)
[2019-01-02] MEDS: BACLOFEN 10 MG TABLET (FP) PO SCH (09:06)
[2019-01-02] MEDS: POLYETHYLENE GLYCOL 3350 119 GM BTL PO SCH (09:07)
[2019-01-02] MEDS ORDERED: DEXAMETHASONE 4 MG TABLET (FP) PO SCH (10:00)
--- NOTE | 2019-01-02 10:33 | PN ---
Progress Note (short form) - Note Progress Note: Pt seen with Dr. Sr today. She was oob and ambulated with PT yesterday. Vital Signs Period Temp Pulse Resp BP Sys/Ann Pulse Ox Last 24 Hr 97.5 F-98.2 F 85-88 20-20 117-154/83-99 95 GEN: A&0x3, AND ABD: Binder in place A/p: 58 yo female with L5 burst fracture and multiple foci of multiple myeloma to her spine Recommend to continue with the abdominal binder, may progress to TLSO brace if pain not relieved with binder Continue PT D/w the medical team and plan for discharge to rehab Pain control as needed as per the medical team
--- NOTE | 2019-01-02 13:08 | PN ---
Progress Note (short form) - Note Progress Note: Patient is more comfortable today in abdominal binder. She was able to stand and take a few steps with PT. She is also able to turn in bed more easily. Patient is ready for SNF/Rehab from Neurosurgery standpoint. - GI/DVT Prophylaxis - PT
--- NOTE | 2019-01-02 13:12 | DS ---
Physical Exam: SUBJECTIVE: Patient seen and examined at bedside this morning. No acute events overnight. Patient reports pain is better this morning, but still aggravated by movement. Denies fever, chills, headache, dizziness, chest pain, SOB, abdominal pain, diarrhea, urinary symptoms. OBJECTIVE: Vital Signs Temperature 98.4 F 01/02/19 10:33 Pulse Rate 72 01/02/19 10:33 Respiratory Rate 16 01/02/19 10:33 Blood Pressure 105/53 L 01/02/19 10:33 O2 Sat by Pulse Oximetry (%) 95 01/01/19 20:47 PHYSICAL EXAM GENERAL: Awake, alert, and fully oriented, in no acute distress. HEAD: Normal with no signs of trauma. EYES: PERRLA, EOMI, sclera anicteric, conjunctiva clear. EARS, NOSE, THROAT: oropharynx clear without exudates. Moist mucous membranes. NECK: Normal range of motion, supple without lymphadenopathy, JVD, or masses. LUNGS: Breath sounds equal, clear to auscultation bilaterally. HEART: Regular rate and rhythm, normal S1 and S2 without murmur, rub or gallop. ABDOMEN: Soft, nontender, not distended, normoactive bowel sounds. MUSCULOSKELETAL: Normal range of motion of bilateral UE. Limited AROM/PROM bilateral LE due to pain. UPPER EXTREMITIES: 2+ pulses, warm, well-perfused. No peripheral edema. LOWER EXTREMITIES: 2+ pulses, warm, well-perfused.No peripheral edema. NEUROLOGICAL: AAOx3, Cranial nerves II-XII intact. Normal speech. Motor strength 5/5, sensation intact on all extremities. DTRs +2. PSYCHIATRIC: Cooperative. Good eye contact. Appropriate mood and affect. SKIN: Warm, dry, normal turgor, no rashes or lesions noted, normal capillary refill. LABS Laboratory Results - last 24 hr 01/01/19 06:30 Sodium 134 L Potassium 4.6 Chloride 97 L Carbon Dioxide 30 Anion Gap 7 L BUN 30 H Creatinine 0.9 Creat Clearance w eGFR 64.54 Random Glucose 88 Calcium 9.3 Phosphorus 3.1 Magnesium 2.3 Vitamin B12 1056 H Serum Folate 13 -MRI (12/03/1018): At C5-C6 level, disc bulge minimally effaces the anterior subarachnoid space but does not indent the cord. Mild bilateral facet joint and uncovertebral joint arthropathy changes to cause at least mild bilateral foraminal compromise. Similar changes in C6-C7 level. In the lower thoracic spine, bilateral ligamenta flava thickening. In the lumbar region, disc bulges to minimally indent the thecal sac from the L3-L4 and L5-S1 levels. No spinal canal or foraminal compromise. -Cervical CT: Diffuse faint mottling of the vertebral bodies compatible with the clinical history of an infiltrative process/multiple myeloma. No compression fracture or subluxation. C5-C6 mild to moderate degenerative disc disease, mild broad-based disc bulge and mild left paracentral posterior spur formation. C6-C7 moderate degenerative disc disease and mild broad-based disc bulge without gross nerve root impingement. -Thoracic CT: Findings compatible with diffuse infiltrative process/small lytic lesions compatible with the clinical history of multiple myeloma. There is minimal compression of T11 superior endplate. Mild compression of T12 superior endplate with minimal retropulsion of its posterior/superior margin and without any significant compromise of the spinal canal. Bibasal atelectatic chagnes and small bilateral pleural effusion. -Lumbar CT: Diffuse bone infiltration/metastasis compatible with hx of MM. Mild compression of L2 superior endplate, likely recent. There is also minimal central compression of L3-L4 vertebral bodies. Moderate posterior compression of L5 vertebral body, likely chronic with mild retropulsion resulting in mild canal stenosis. HOSPITAL COURSE: Date of Admission:12/30/18 Date of Discharge: 01/02/19 Patient is a 58 year old female with past medical history of chronic back pain, anemia, HTN, and multiple myeloma, presented to the ED due to worsening low back pain in the last [address] scan showed compression in the lumbar area. Neurosurgery was consulted and no surgery was indicated at this time. Abdominal binder was recommended, and may progress to TLSO brace if pain is not relieved with binder. Patient's pain was controlled with the binder, Oxycontin 10mg daily , with PRN Oxycodone, Tylenol and Lidocaine patch. Home dose of Baclofen and Flexeril were resumed. Bowel regimen with Colace and Miralax. [facility] with physical therapy. Minutes to complete discharge: 39 Discharge Summary Reason For Visit: LOWER BACK PAIN,ANEMIA Current Active Problems Anemia (Acute) Back pain (Acute) HTN (hypertension) (Acute) Low back pain (Acute) Multiple myeloma (Acute) Condition: Stable - Instructions Diet, Activity, Other Instructions: Your visit You were admitted to the hospital because you have worsening low back pain. CAT scan of your spine was done which showed compression. You were evaluated by Neurosurgery (Dr. Sr) and no surgery is recommended at this time. You are encouraged to do exercises with physical therapy and wear an abdominal binder that would help stabilize your back. You will be discharged to a prison facility to continue with physical therapy. Medications Please take the following medications for your back pain: 1. Oxycontin 10mg daily 2. Tylenol 650mg every 6 hours as needed 3. Lidoderm patch daily as needed. 4. Flexeril 10mg daily. 5. Baclofen 10mg twice a day. 6. Colace 100mg twice a day and Miralax daily as needed for constipation. Continue your other home medications. Follow up Please follow up with your primary care doctor (Dr. Rae) within 1 week. Please follow up with your supervisor cook room (Dr. Pickett) as scheduled. Additional info Call 911 or go to the ED if with any worsening fever, chills, headache, chest pain, shortness of breath, abdominal pain, bloody stools, weakness, numbness or any new concerns noted. Referrals: Bigg Rae MD [Other] Ned Sr MD, [facility] [Staff Physician] - Laureano Pickett [Non Staff, Medical] - Disposition: [facility] - Home Medications Comprehensive Discharge Medication List: Ambulatory Orders Metoprolol Succinate [Toprol XL -] 100 mg PO DAILY 04/18/14 Losartan 50Mg/Hctz 12.5MG [Hyzaar -] 1 tab PO DAILY 08/28/16 Baclofen 10 mg PO BID 12/29/18 Cyclobenzaprine HCl 10 mg PO DAILY 12/29/18 Dexamethasone 20 mg PO Q7D 12/29/18 Multivitamin [Multiple Vitamins] 1 each PO DAILY 12/29/18 Acetaminophen [Tylenol .Regular Strength -] 650 mg PO Q6H PRN tablet 12/31/18 Dexamethasone [Decadron -] 20 mg PO Th@1000 tablet 12/31/18 Docusate Sodium [Colace -] 100 mg PO BID capsule 12/31/18 oxyCODONE SR [Oxycontin] 10 mg PO DAILY tab.er.12h MDD 10 12/31/18 Polyethylene Glycol 3350 [Miralax 119 gm Btl -] 17 gm PO DAILY bottle 01/02/19 Sennosides/Docusate Sodium [Pericolace -] 2 tablet PO HS PRN tablet 01/02/19 oxyCODONE HCL [Roxicodone -] 5 mg PO Q6H PRN tablet MDD 20 01/02/19 This patient is new to me today: No Emergency Visit: Yes ED Registration Date: 12/30/18 Care time: The patient presented to the Emergency Department on the above date and was hospitalized for further evaluation of their emergent condition. Critical Care patient: No - Discharge Referral Referred to [facility] No
[2019-01-02 15:12] VITALS: BP 125/85; PULSE 70; TEMP 98
--- NOTE | 2019-01-02 18:13 | PN ---
Teaching Attending Note Name of Resident: Shilpi Garcia ATTENDING PHYSICIAN STATEMENT I saw and evaluated the patient. I reviewed the resident's note and discussed the case with the resident. I agree with the resident's findings and plan as documented. SUBJECTIVE: Seen and examined at bedside. Back pain slightly improving, no BM for 4 days, drank miralax today. OBJECTIVE: Vital Signs Period Temp Pulse Resp BP Sys/Ann Pulse Ox Last 24 Hr 97.5 F-98.4 F 70-88 16-20 105-154/53-85 95-95 Laboratory Results - last 24 hr 01/01/19 06:30 Sodium 134 L Potassium 4.6 Chloride 97 L Carbon Dioxide 30 Anion Gap 7 L BUN 30 H Creatinine 0.9 Creat Clearance w eGFR 64.54 Random Glucose 88 Calcium 9.3 Phosphorus 3.1 Magnesium 2.3 Vitamin B12 1056 H Serum Folate 13 ALL MEDICATIONS and IMAGING REPORTS REVIEWED PHYSICAL EXAM: General: NAD CVS: s1s2, rrr, no n/r/g Abdomen: soft, nt/nd, nabs, abdominal binder+ Lungs: CTA bl no w/r/r unlabored Ext: no c/c/e, no edema, limited ROM due to pain ASSESSMENT AND PLAN: 58 year old female with past medical history of chronic back pain, anemia, HTN, and multiple myeloma, presented to the ED due to worsening low back pain in the last 2 weeks. MM, multiple vertebral fractures/lytic lesions Low back pain HTN Anemia -adequate pain control, continue and start to wean once doing better at rehab -colace, miralax added today -Continue home Baclofen and Flexeril -PT -NS cleared for DC -No surgical intervention -Abdominal binder/brace for support -weekly dose of steroids from heme-onc Dr. Pickett (follow up on Sunday) -monitor CBC, BMP -c/w antiHTN meds
[2019-01-03 15:18] LABS: TOTAL PROTEIN, URINE 8.9 mg/dL (Not Estab.)
== END 2019-01-02 15:29 | DRG 841 ==
LOC: JER 01:45 → JERBED 06:02 → J8W 12-30 12:55 → OBSVTOIN 12-30 15:11 → UNDODISIN 12-30 22:30
PROVIDERS: ADMIT Internal Medicine; ATTEND Internal Medicine
DX: C90.00 Multiple myeloma not having achieved remission (principal); S32.051A Stable burst fracture of fifth lumbar vertebra, initial encounter for closed fracture; J90 Pleural effusion, not elsewhere classified; I10 Essential (primary) hypertension; K21.9 Gastro-esophageal reflux disease without esophagitis; E78.00 Pure hypercholesterolemia, unspecified; F41.8 Other specified anxiety disorders; M47.9 Spondylosis, unspecified; M50.322 Other cervical disc degeneration at C5-C6 level; M51.9 Unspecified thoracic, thoracolumbar and lumbosacral intervertebral disc disorder; D63.0 Anemia in neoplastic disease
CPT/HCPCS: 36415; 72125-TC; 72128-TC; 72131-TC; 80048; 80053; 81003; 82272; 82550; 82607; 82728; 82746; 83540; 83550; 83735; 84100; 84155; 84156; 84157; 84165; 84484; 85025; 85027; 85610; 85730; 86850; 86900; 86901; 86922; 87086; 87186; 93005; 93010; 97116-GP; 97162-GP; 99285-25; G0378; J0475; J1644

== ENCOUNTER 2020-10-12 15:17 | Emergency (ER) | payer OTHER ==
[2020-10-12 15:24] VITALS: BMI 20.8
[2020-10-12 15:28] VITALS: BP 123/74; PULSE 70; TEMP 99
[2020-10-12] MEDS ORDERED: SODIUM CHLORIDE 0.9% 500 ML INFUS.BAG IV ONE (16:01)
[2020-10-12 17:00] LABS: BASO % 1.2 % (0-2.0); EOS % 0.8 % (0-4.5); HEMATOCRIT 35.1 % (32.4-45.2); HEMOGLOBIN 11.6 GM/dl (10.7-15.3); MCH 32.4 pg (25.7-33.7); MCHC 32.9 g/dl (32.0-36.0); MEAN CELL VOLUME 98.4 fl (80-96); MEAN PLT VOLUME 9.3 fl (7.5-11.1); MONO % 12.7 % (3.8-10.2); NEUT % 42.3 % (42.8-82.8); PLATELET COUNT 144 K/MM3 (134-434); RBC 3.57 M/mm3 (3.60-5.2); WHITE BLOOD COUNT 4.8 K/mm3 (4.0-10.8)
[2020-10-12] MEDS ORDERED: KETOROLAC TROMETHAMINE 15 MG/ML VIAL IVPUSH ONE (17:23)
[2020-10-12 17:24] LABS: ALBUMIN 3.3 g/dl (3.4-5.0); BILIRUBIN,TOTAL 0.9 mg/dl (0.2-1); CALCIUM 8.9 mg/dl (8.5-10); CREATININE 0.9 mg/dl (0.55-1.3); POTASSIUM 4.2 mmol/L (3.5-5.1); TOT PROT 7.8 g/dl (6.4-8.2)
[2020-10-12] MEDS ORDERED: KETOROLAC TROMETHAMINE 15 MG/ML VIAL ONE (17:47)
== END 2020-10-12 18:27 | disposition home or self-care (01) ==
LOC: FER 15:17
PROC: 3E0333Z Introduction of Anti-inflammatory into Peripheral Vein, Percutaneous Approach (ICD-10-PCS; principal; 2020-10-12)
DX: M54.6 Pain in thoracic spine (principal)
CPT/HCPCS: 36415; 71045-TC-FY; 72070-TC-FY; 80053; 84484; 85025; 93005; 96374; 99285-25; C9803; U0003